=== PATIENT | female | born 1995 | race Caucasian/White ===

== ENCOUNTER 2016-10-03 15:11 | Emergency (ER) | payer OTHER, MEDICAID ==
[2016-10-03] MEDS ORDERED: NORMAL SALINE 1000 ML 1,000 ML IV PRN (16:05)
--- NOTE | 2016-10-03 16:11 | ER Document Report ---
ED Medical Screen (RME) - General Chief Complaint: Abdominal Pain Stated Complaint: ABDOMINAL PAIN,NAUSEA Time Seen by Provider: 10/03/16 16:04 Notes: Patient reports bilateral abdominal pain. She states she has had this for about 2 days. She has had some diarrhea and some vomiting. She states she believes she is 4 weeks per a home test. She has not been seen in a clinic for . She denies any vaginal discharge or bleeding. She states she does have a history of irritable bowel syndrome and PCOS. TRAVEL OUTSIDE OF THE [place] IN LAST 30 DAYS: No - Related Data Allergies/Adverse Reactions: No Known Allergies Allergy (Unverified 10/03/16 15:16) Past Medical History Pulmonary Medical History: Reports: Hx Asthma Renal/ Medical History: Denies: Hx Peritoneal Dialysis Physical Exam - Vital signs Vitals: Temp Pulse BP Pulse Ox 98.5 F 117 H 147/73 H 98 10/03/16 15:17 10/03/16 15:17 10/03/16 15:17 10/03/16 15:17 Course - Vital Signs Vital signs: Temp Pulse Resp BP Pulse Ox 98.5 F 117 H 147/73 H 98 10/03/16 15:17 10/03/16 15:17 10/03/16 15:17 10/03/16 15:17
[2016-10-03 16:35] LABS: ABSOLUTE BASOPHILS # (AUTO) 0.2 10^3/uL (0.0-0.2); ABSOLUTE EOSINOPHILS # (AUTO) 0.4 10^3/uL (0.0-0.6); ABSOLUTE LYMPHOCYTES (AUTO) 2.7 10^3/uL (0.5-4.7); ABSOLUTE MONOCYTES (AUTO) 0.7 10^3/uL (0.1-1.4); ABSOLUTE NEUT (AUTO) 7.3 10^3/uL (1.7-8.2); BASOPHILS % (AUTO) 1.4 % (0-2); EOSINOPHILS % (AUTO) 3.7 % (0-6); HEMOGLOBIN 14.9 g/dL (12.0-15.5); HGB HCT DIFFERENCE 0.7; MEAN CORPUSCULAR HEMOGLOBIN 30.3 pg (27.0-33.4); MEAN CORPUSCULAR HGB CONC 33.7 g/dL (32.0-36.0); MEAN CORPUSCULAR VOLUME 90 fl (80-97); MONOCYTES % (AUTO) 6.6 % (3-13); RED CELL DISTRIBUTION WIDTH 13.1 % (11.5-14.0); SEGMENTED NEUTROPHILS % (AUTO) 64.3 % (42-78); WHITE BLOOD COUNT 11.3 10^3/uL (4.0-10.5)
[2016-10-03 16:38] LABS: APPEARANCE,URINE SLIGHTLY-CLOUDY; BILIRUBIN,URINE NEGATIVE (NEGATIVE); GLUCOSE, URINE NEGATIVE (NEGATIVE); KETONES,URINE NEGATIVE (NEGATIVE); LEUKOCYTE ESTERASE,URINE NEGATIVE (NEGATIVE); NITRITE,URINE NEGATIVE (NEGATIVE); PROTEIN,URINE NEGATIVE (NEGATIVE); UROBILINOGEN,URINE NEGATIVE mg/dL (<2.0)
[2016-10-03 16:59] LABS: ALANINE AMINOTRANSFERASE 29 U/L (9-52); ALBUMIN 4.3 g/dL (3.5-5.0); ALKALINE PHOSPHATASE 67 U/L (38-126); ANION GAP 10 (5-19); ASPARTATE AMINO TRANSFERASE 19 U/L (14-36); BILIRUBIN,DIRECT 0.3 mg/dL (0.0-0.4); BILIRUBIN,TOTAL 0.6 mg/dL (0.2-1.3); BLOOD UREA NITROGEN 9 mg/dL (7-20); CALCIUM 9.8 mg/dL (8.4-10.2); CARBON DIOXIDE 21 mmol/L (22-30); CHLORIDE 106 mmol/L (98-107); CREATININE RESULT 0.67 mg/dL (0.52-1.25); GLUCOSE 86 mg/dL (75-110); LIPASE 157.5 U/L (23-300); POTASSIUM 4.2 mmol/L (3.6-5.0); SODIUM 137.4 mmol/L (137-145); TOTAL PROTEIN 7.6 g/dL (6.3-8.2)
[2016-10-03] MEDS ORDERED: ACETAMINOPHEN 325 MG TABLET PO ONE (18:08)
--- NOTE | 2016-10-03 18:09 | ER Document Report ---
ED GI/ - General Chief Complaint: Abdominal Pain Stated Complaint: ABDOMINAL PAIN,NAUSEA Time Seen by Provider: 10/03/16 16:04 Mode of Arrival: Ambulatory Information source: Patient TRAVEL OUTSIDE OF THE [place] IN LAST 30 DAYS: No - HPI Patient complains to provider of: Abdominal pain, Diarrhea, , Vomiting Onset: Other - 2 days Timing/Duration: Gradual Quality of pain: Achy Severity at maximum: Mild Severity in ED: Mild Location: Other - Diffuse Associated symptoms: Diarrhea, Nausea, Vomiting Exacerbated by: Denies Relieved by: Denies Similar symptoms previously: No Recently seen / treated by doctor: No Notes: 10/03/16 22:01 Patient is a 21-year-old female who reports being approximately 4 weeks presenting to the emergency room today complaining of 2 day history of nausea vomiting and diarrhea with diffuse crampy abdominal pain, she denies a fever, no history of similar symptoms previously, this is her first , she denies dysuria or hematuria, no vaginal discharge, no vaginal bleeding, she does have a history of IBS, PCOS and asthma, has not yet been seen by [facility] - Related Data Allergies/Adverse Reactions: No Known Allergies Allergy (Unverified 10/03/16 15:16) Past Medical History - General Information source: Patient - Social History Smoking Status: Never Smoker Family History: Reviewed & Not Pertinent Patient has suicidal ideation: No Patient has homicidal ideation: No Pulmonary Medical History: Reports: Hx Asthma Renal/ Medical History: Denies: Hx Peritoneal Dialysis Review of Systems - Review of Systems Constitutional: No symptoms reported EENT: No symptoms reported Cardiovascular: No symptoms reported Respiratory: No symptoms reported Gastrointestinal: See HPI Genitourinary: No symptoms reported Female Genitourinary: Musculoskeletal: No symptoms reported Skin: No symptoms reported Hematologic/Lymphatic: No symptoms reported Neurological/Psychological: No symptoms reported -: Yes All other systems reviewed and negative Physical Exam - Vital signs Vitals: Temp Pulse BP Pulse Ox 98.5 F 117 H 147/73 H 98 10/03/16 15:17 10/03/16 15:17 10/03/16 15:17 10/03/16 15:17 Interpretation: Normal - General General appearance: Appears well, Alert - HEENT Head: Normocephalic, Atraumatic Eyes: Normal Pupils: PERRL - Respiratory Respiratory status: No respiratory distress Chest status: Nontender Breath sounds: Normal Chest palpation: Normal - Cardiovascular Rhythm: Regular Heart sounds: Normal auscultation Murmur: No - Abdominal Inspection: Normal Distension: No distension Bowel sounds: Normal Tenderness: Tender - Epigastric Organomegaly: No organomegaly - Back Back: Normal, Nontender - Extremities General upper extremity: Normal inspection, Nontender, Normal color, Normal ROM , Normal temperature General lower extremity: Normal inspection, Nontender, Normal color, Normal ROM , Normal temperature, Normal weight bearing. No: Jyoti's sign - Neurological Neuro grossly intact: Yes Cognition: Normal Orientation: AAOx4 Elsa Coma Scale Eye Opening: Spontaneous [place] Coma Scale Verbal: Oriented Elsa Coma Scale Motor: Obeys Commands [place] Coma Scale Total: 15 Speech: Normal Motor strength normal: LUE, RUE, LLE, RLE Sensory: Normal - Psychological Associated symptoms: Normal affect, Normal mood - Skin Skin Temperature: Warm Skin Moisture: Dry Skin Color: Normal Course - Re-evaluation Re-evalutation: 10/03/16 19:42 Lab and imaging findings were discussed with patient at bedside which are consistent with early IUP, patient will be discharged with nausea meds and instructions for follow-up, advised to return if any additional concerns, patient acknowledges understanding and agreement with this plan - Vital Signs Vital signs: Temp Pulse Resp BP Pulse Ox 97.8 F 97 16 122/77 100 10/03/16 20:23 10/03/16 20:23 10/03/16 20:23 10/03/16 20:23 10/03/16 20:23 - Laboratory Result Diagrams: 10/03/16 16:20 10/03/16 16:20 Laboratory results interpreted by me: 10/03/16 10/03/16 16:20 16:20 WBC 11.3 H Carbon Dioxide 21 L Beta HCG, Quant 1946.80 H - Diagnostic Test Radiology reviewed: Image reviewed, Reports reviewed Discharge - Discharge Clinical Impression: Early stage of Abdominal pain Qualifiers: Abdominal location: generalized Qualified Code(s): R10.84 - Generalized abdominal pain Condition: Stable Disposition: HOME, SELF-CARE Instructions: Abdominal Pain ([facility]), Antinausea Medication ([facility]), Pelvic Pain in ([facility]), ([facility]) Additional Instructions: Follow up with your primary care provider in one to 2 days. Return to the emergency room immediately if symptoms worsen or any additional concerns. Prescriptions: Metoclopramide HCl [Reglan 10 mg Tablet] 1 - 2 tab PO ASDIR PRN #25 tablet PRN Reason:
--- NOTE | 2016-10-03 19:21 | RADIOLOGY REPORT (SQ) ---
EXAM DESCRIPTION: U/S OB TRANSVAG W/DOPPLER COMPLETED DATE/TIME: 10/03/2016 7:04 pm REASON FOR STUDY: , pelvic pain COMPARISON: None. TECHNIQUE: Transvaginal static and realtime grayscale images acquired of the pelvis. Additional tereso cted spectral and color Doppler images recorded. All images stored on PACs. bHC.80 LIMITATIONS: None. FINDINGS: UTERUS: No masses. No anomalies. GESTATIONAL SAC: Yes. YOLK SAC: No. POLE: No. RIGHT ADNEXA: Normal ovary with normal vascular flow. No adnexal free fluid. No adnexal masses. LEFT ADNEXA: Normal ovary with normal vascular flow. No adnexal free fluid. 3.5 cm echogenic focus left ovary presumably represents a physiologic corpus luteal cyst. FREE FLUID: None. OTHER: No other significant finding. IMPRESSION: POSSIBLE EARLY INTRAUTERINE . BHCG LEVEL APPROPRIATE FOR ENDOMETRIAL FINDINGS. CONSIDER F/U BHCG AND/OR ULTRASOUND FOR VERIFICATION AND TO EXCLUDE ECTOPIC . Trimester of : First - 0 to 13 weeks. TECHNICAL DOCUMENTATION: JOB ID: [id number] [employer]- All Rights Reserved
[2016-10-03 20:35] VITALS: BP 122/77
== END 2016-10-03 20:23 | disposition home or self-care (01) ==
LOC: ER 15:11
DX: O26.899 Other specified pregnancy related conditions, unspecified trimester (principal); R10.84 Generalized abdominal pain; R19.7 Diarrhea, unspecified; O34.80 Maternal care for other abnormalities of pelvic organs, unspecified trimester; E28.2 Polycystic ovarian syndrome; O21.9 Vomiting of pregnancy, unspecified; O99.519 Diseases of the respiratory system complicating pregnancy, unspecified trimester; J45.909 Unspecified asthma, uncomplicated; Z3A.00 Weeks of gestation of pregnancy not specified
CPT/HCPCS: 99284; 96360; 36415; 84702; 83690; 85025; 80053; 81001; 76817; 93976; J7030

== ENCOUNTER 2016-10-04 00:12 | Emergency (ER) | payer MEDICAID, OTHER ==
[2016-10-04 00:39] LABS: ABSOLUTE BASOPHILS # (AUTO) 0.1 10^3/uL (0.0-0.2); ABSOLUTE EOSINOPHILS # (AUTO) 0.4 10^3/uL (0.0-0.6); ABSOLUTE LYMPHOCYTES (AUTO) 3.5 10^3/uL (0.5-4.7); ABSOLUTE MONOCYTES (AUTO) 0.8 10^3/uL (0.1-1.4); ABSOLUTE NEUT (AUTO) 6.6 10^3/uL (1.7-8.2); BASOPHILS % (AUTO) 1.3 % (0-2); EOSINOPHILS % (AUTO) 3.9 % (0-6); HEMATOCRIT 40.7 % (36.0-47.0); HEMOGLOBIN 13.8 g/dL (12.0-15.5); HGB HCT DIFFERENCE 0.7; LYMPHOCYTES % (AUTO) 30.1 % (13-45); MEAN CORPUSCULAR HEMOGLOBIN 30.2 pg (27.0-33.4); MEAN CORPUSCULAR HGB CONC 33.9 g/dL (32.0-36.0); MEAN CORPUSCULAR VOLUME 89 fl (80-97); MONOCYTES % (AUTO) 7.1 % (3-13); RED BLOOD COUNT 4.56 10^6/uL (3.72-5.28); RED CELL DISTRIBUTION WIDTH 12.7 % (11.5-14.0); SEGMENTED NEUTROPHILS % (AUTO) 57.6 % (42-78); WHITE BLOOD COUNT 11.5 10^3/uL (4.0-10.5)
[2016-10-04 00:47] LABS: APPEARANCE,URINE CLOUDY; BILIRUBIN,URINE NEGATIVE (NEGATIVE); GLUCOSE, URINE NEGATIVE (NEGATIVE); KETONES,URINE NEGATIVE (NEGATIVE); LEUKOCYTE ESTERASE,URINE NEGATIVE (NEGATIVE); NITRITE,URINE NEGATIVE (NEGATIVE); PROTEIN,URINE 30 mg/dL (NEGATIVE); URINE SPECIFIC GRAVITY 1.028; UROBILINOGEN,URINE NEGATIVE mg/dL (<2.0)
[2016-10-04 01:02] LABS: URINE BARBITURATES SCREEN NEGATIVE; URINE METHADONE SCREEN NEGATIVE; URINE OPIATES LOW NEGATIVE; URINE PHENCYCLIDINE SCREEN NEGATIVE
[2016-10-04 01:03] LABS: ALANINE AMINOTRANSFERASE 33 U/L (9-52); ALKALINE PHOSPHATASE 60 U/L (38-126); ANION GAP 11 (5-19); ASPARTATE AMINO TRANSFERASE 19 U/L (14-36); BILIRUBIN,DIRECT 0.3 mg/dL (0.0-0.4); BILIRUBIN,TOTAL 0.7 mg/dL (0.2-1.3); BLOOD UREA NITROGEN 9 mg/dL (7-20); CALCIUM 9.4 mg/dL (8.4-10.2); CARBON DIOXIDE 19 mmol/L (22-30); CHLORIDE 107 mmol/L (98-107); GLUCOSE 91 mg/dL (75-110); MAGNESIUM 1.6 mg/dL (1.6-2.3); POTASSIUM 3.7 mmol/L (3.6-5.0); SODIUM 136.5 mmol/L (137-145); TOTAL PROTEIN 7.1 g/dL (6.3-8.2)
[2016-10-04 01:04] LABS: ALCOHOL < 10 mg/dL (NONE DETECTED)
--- NOTE | 2016-10-04 01:56 | ER Document Report ---
ED General - General Chief Complaint: Psych Problem Stated Complaint: PSYCH PROBLEM Time Seen by Provider: 10/04/16 01:47 Notes: Patient is a 21-year-old female who presents with complaint of multiple personality disorder. She is 5 weeks . She did have some abdominal cramping and was seen within the last 24 hours. Ultrasound that time was performed which showed probable early intrauterine . She still denies any vaginal bleeding or discharge. She presents with her because she apparently threatened to drive herself off a bridge in a car. She is threatening to take her life and the baby's life away from the . He did have text messages from the patient confirming this. Patient says she does not remember saying this because it was her other personality that said this. TRAVEL OUTSIDE OF THE [place] IN LAST 30 DAYS: No - Related Data Allergies/Adverse Reactions: No Known Allergies Allergy (Verified 10/04/16 00:16) Past Medical History - Social History Smoking Status: Unknown if Ever Smoked Frequency of alcohol use: None Drug Abuse: None Family History: Reviewed & Not Pertinent Patient has suicidal ideation: Yes Patient has homicidal ideation: No Pulmonary Medical History: Reports: Hx Asthma Renal/ Medical History: Denies: Hx Peritoneal Dialysis Psychiatric Medical History: Reports: Hx Bipolar Disorder, Hx Depression, Hx Schizophrenia Review of Systems - Review of Systems Notes: My Normal Review Basic REVIEW OF SYSTEMS: CONSTITUTIONAL : Denies fever, chills, or sweats. Denies recent illness.. RESPIRATORY: Denies cough, cold, or chest congestion. Denies shortness of breath, difficulty breathing, or wheezing. GASTROINTESTINAL: Mild lower abdominal pain. Denies nausea, vomiting, or diarrhea. Denies constipation. Last BM: GENITOURINARY: Denies difficulty urinating, painful urination, burning, frequency, or blood in urine. FEMALE GENITOURINARY: Denies vaginal bleeding, abnormal or irregular periods. LMP: Early MUSCULOSKELETAL: Denies neck or back pain or joint pain or swelling. SKIN: Denies rash or skin lesions. NEUROLOGICAL: Denies altered mental status or loss of consciousness. Denies headache. Denies weakness or paralysis or loss of use of either side. Denies problems with gait or speech. Denies sensory or motor loss. Psychiatric: Multiple personality disorder. Suicidal threats. ALL OTHER SYSTEMS REVIEWED AND NEGATIVE. Physical Exam - Vital signs Vitals: Temp Pulse Resp BP Pulse Ox 99.0 F 110 H 16 126/81 H 97 10/04/16 00:16 10/04/16 00:16 10/04/16 00:16 10/04/16 00:16 10/04/16 00:16 - Notes Notes: General Appearance: Well nourished, alert, cooperative, no acute distress, no obvious discomfort. Vitals: reviewed, See vital signs table. Head: no swelling or tenderness to the head Eyes: PERRL, EOMI, Conjuctiva clear Mouth: No decreasd moisture Throat: No tonsillar inflammation, No airway obstruction, No lymphadenopathy Neck: Supple, no neck tenderness, No thyromegaly Lungs: No wheezing, No rales, No rhonci, No accessory muscle use, good air exchange bilaterally. Heart: Normal rate, Regular rythm, No murmur, no rub Abdomen: Normal BS, soft, No rigidity, No reproducible abdominal tenderness to palpation, No guarding, no rebound, no abdominal masses, no organomegaly Extremities: strength 5/5 in all extremities, good pulses in all extremities, no swelling or tenderness in the extremities, no edema. Skin: warm, dry, appropriate color, no rash Neuro: speech clear, oriented x 3, normal affect, responds appropriately to questions. Course - Re-evaluation Re-evalutation: 10/04/16 06:28 Patient is here on involuntary commitment paperwork filled out by her family because of her thoughts of suicide and possible multiple personality disorder. Patient is and has had some mild cramping that she was seen for yesterday. Her hCG has trended up appropriately. I do not suspect ectopic based on the fact that she has very little to almost no pain to palpation of her abdomen. I feel she is medically stable for psychiatric evaluation and placement. Dictation of this chart was performed using voice recognition software; therefore, there may be some unintended grammatical errors. - Vital Signs Vital signs: Temp Pulse Resp BP Pulse Ox 99.0 F 110 H 16 126/81 H 97 10/04/16 00:16 10/04/16 00:16 10/04/16 00:16 10/04/16 00:16 10/04/16 00:16 - Laboratory Result Diagrams: 10/04/16 00:25 10/04/16 00:25 Laboratory results interpreted by me: 10/04/16 10/04/1610/04/17 00:25 00:25 00:25 WBC 11.5 H Sodium 136.5 L Carbon Dioxide 19 L Beta HCG, Quant Urine Protein 30 H 10/04/16 00:25 WBC Sodium Carbon Dioxide Beta HCG, Quant 2086.00 H Urine Protein - EKG Interpretation by Me Additional EKG results interpreted by me: 10/04/16 03:05 EKG is reviewed and interpreted by me. EKG shows normal sinus rhythm with rate of [address] segment elevation or depression. No ischemic T-wave inversions. ID interval, QRS duration, QTc intervals are within normal range. No old EKG available for comparison. Discharge - Discharge Clinical Impression: Suicidal ideation Condition: Stable Disposition: PSYCH HOSP/UNIT
[2016-10-04] MEDS ORDERED: ALBUTEROL SULFATE HFA (90 MCG/PUFF) 8 GM MDI (1 MDI/ER DISP) IH ONE (10:03)
--- NOTE | 2016-10-04 10:22 | EKG REPORT ---
SEVERITY:- NORMAL ECG - SINUS RHYTHM : Confirmed by: Peng Levi 04-Oct-2016 10:21:40
[2016-10-04 12:58] VITALS: BP 93/44
--- NOTE | 2016-10-04 14:38 | ER Document Report ---
Doctor's Note Notes: 10/04/16 14:37 Patient reevaluated at 2:25 PM. Patient is standing in the room talking to her mother and significant other. She is calm and cooperative. She is asking if she will be able to see family at the facility she is being transferred to. She is discussing this with the nurse. She is in no distress and is ambulating freely about the room.
== END 2016-10-04 14:30 ==
LOC: ER 00:12
DX: O26.891 Other specified pregnancy related conditions, first trimester (principal); R45.851 Suicidal ideations; R10.30 Lower abdominal pain, unspecified; O99.511 Diseases of the respiratory system complicating pregnancy, first trimester; J45.909 Unspecified asthma, uncomplicated; Z3A.01 Less than 8 weeks gestation of pregnancy
CPT/HCPCS: 93005; 99285; 36415; 80307 ×2; 84702; 83735; 85025; 80053; 81001; 93010; J3490

== ENCOUNTER 2016-12-23 17:39 | Emergency (ER) | payer OTHER ==
[2016-12-23] MEDS ORDERED: ALBUTEROL SULFATE 0.083% NEB 2.5 MG/3 ML AMPUL NEB ONE (18:10)
--- NOTE | 2016-12-23 18:10 | ER Document Report ---
ED Medical Screen (RME) - General Chief Complaint: Abdominal Pain Stated Complaint: COLD SYMPTOMS Time Seen by Provider: 12/23/16 18:04 Mode of Arrival: Ambulatory Information source: Patient Notes: 21-year-old female who is 16 weeks with 5 day duration of URI symptoms presents with complaints of chest wall pain and abdominal pain. Patient denies any vaginal bleeding discharge I have greeted and performed a rapid initial assessment of this patient. A comprehensive ED assessment and evaluation of the patient, analysis of test results and completion of the medical decision making process will be conducted by additional ED providers. PHYSICAL EXAMINATION: GENERAL: Well-appearing, well-nourished and in no acute distress. HEAD: Atraumatic, normocephalic. EYES: Pupils equal round extraocular movements intact, conjunctiva are normal. ENT: Nares patent NECK: Normal range of motion LUNGS: Inspiratory expiratory wheezing noted all throughout Musculoskeletal: Normal range of motion NEUROLOGICAL: Normal speech, normal gait. PSYCH: Normal mood, normal affect. SKIN: Warm, Dry, normal turgor, no rashes or lesions noted. TRAVEL OUTSIDE OF THE [place] IN LAST 30 DAYS: No - Related Data Allergies/Adverse Reactions: No Known Allergies Allergy (Verified 12/23/16 17:54) Home Medications: Current Home Medications Albuterol Sulfate [Proair HFA] 2 puff IH Q4 PRN 12/23/16 [History] Fluoxetine HCl [Prozac] 20 mg PO DAILY 12/23/16 [History] Gabapentin [Gabapentin] 1 cap PO QHS 12/23/16 [History] Risperidone [Risperdal] 0.5 mg PO QHS 12/23/16 [History] Past Medical History Pulmonary Medical History: Reports: Hx Asthma Renal/ Medical History: Denies: Hx Peritoneal Dialysis Psychiatric Medical History: Reports: Hx Bipolar Disorder, Hx Depression, Hx Schizophrenia Past Surgical History: Reports: Hx Oral Surgery - wisdom teeth - Immunizations Hx Diphtheria, Pertussis, Tetanus Vaccination: No History of Influenza Vaccine for 11/2016 - 04/2017 Season: No Physical Exam - Vital signs Vitals: Temp Pulse Resp BP Pulse Ox 98.5 F 100 16 110/68 98 12/23/16 17:54 12/23/16 17:54 12/23/16 17:54 12/23/16 17:54 12/23/16 17:54 Course - Vital Signs Vital signs: Temp Pulse Resp BP Pulse Ox 98.5 F 100 16 110/68 98 12/23/16 17:54 12/23/16 17:54 12/23/16 17:54 12/23/16 17:54 12/23/16 17:54
[2016-12-23] MEDS ORDERED: NORMAL SALINE 1000 ML 1,000 ML IV PRN (18:32)
--- NOTE | 2016-12-23 18:34 | ER Document Report ---
ED General - General Chief Complaint: Abdominal Pain Stated Complaint: COLD SYMPTOMS Time Seen by Provider: 12/23/16 18:04 Mode of Arrival: Ambulatory Information source: Patient TRAVEL OUTSIDE OF THE [place] IN LAST 30 DAYS: No - HPI Patient complains to provider of: Cough, cold congestion, pelvic cramping Onset: Other - 5 days Onset/Duration: Persistent, Worse Quality of pain: Achy, Cramping Severity: Mild Pain Level: 2 Associated symptoms: Body/muscle aches, Chills, Nonproductive cough, Diarrhea, Nausea, Shortness of breath Exacerbated by: Denies Relieved by: Denies Similar symptoms previously: No Recently seen / treated by doctor: Yes Notes: Patient is a 21-year-old female who is currently approximately 16 weeks , presenting to the emergency room today complaining of shortness of breath, cough cold and congestion, 5 days, [facility] previously put her on a Z-Cristian which she completed, today she developed some pelvic cramping without any discharge or bleeding, yesterday she had nausea and diarrhea, denies any fever, does report positive sick contacts, has been seen at [facility] and had a ultrasound at 10 weeks showing positive IUP, she reports feeling fluttering heart movements - Related Data Allergies/Adverse Reactions: No Known Allergies Allergy (Verified 12/23/16 17:54) Home Medications: Current Home Medications Albuterol Sulfate [Proair HFA] 2 puff IH Q4 PRN 12/23/16 [History] Fluoxetine HCl [Prozac] 20 mg PO DAILY 12/23/16 [History] Gabapentin [Gabapentin] 1 cap PO QHS 12/23/16 [History] Risperidone [Risperdal] 0.5 mg PO QHS 12/23/16 [History] Past Medical History - General Information source: Patient - Social History Smoking Status: Former Smoker Family History: Reviewed & Not Pertinent Patient has suicidal ideation: No Patient has homicidal ideation: No Pulmonary Medical History: Reports: Hx Asthma Renal/ Medical History: Denies: Hx Peritoneal Dialysis Psychiatric Medical History: Reports: Hx Bipolar Disorder, Hx Depression, Hx Schizophrenia Past Surgical History: Reports: Hx Oral Surgery - wisdom teeth - Immunizations Hx Diphtheria, Pertussis, Tetanus Vaccination: No Review of Systems - Review of Systems Constitutional: See HPI EENT: See HPI Cardiovascular: See HPI Respiratory: See HPI Gastrointestinal: See HPI Genitourinary: No symptoms reported Female Genitourinary: Musculoskeletal: No symptoms reported Skin: No symptoms reported Hematologic/Lymphatic: No symptoms reported Neurological/Psychological: No symptoms reported -: Yes All other systems reviewed and negative Physical Exam - Vital signs Vitals: Temp Pulse Resp BP Pulse Ox 98.5 F 100 16 110/68 98 12/23/16 17:54 12/23/16 17:54 12/23/16 17:54 12/23/16 17:54 12/23/16 17:54 Interpretation: Normal - General General appearance: Appears well, Alert - HEENT Head: Normocephalic, Atraumatic Eyes: Normal Pupils: PERRL - Respiratory Respiratory status: No respiratory distress Chest status: Tender - Tender to palpate over midsternum Breath sounds: Normal Chest palpation: Normal - Cardiovascular Rhythm: Regular Heart sounds: Normal auscultation Murmur: No - Abdominal Inspection: Normal Distension: No distension Bowel sounds: Normal Tenderness: Tender - Tender to palpate in the suprapubic region Organomegaly: No organomegaly - Back Back: Normal, Nontender - Extremities General upper extremity: Normal inspection, Nontender, Normal color, Normal ROM , Normal temperature General lower extremity: Normal inspection, Nontender, Normal color, Normal ROM , Normal temperature, Normal weight bearing. No: Jyoti's sign - Neurological Neuro grossly intact: Yes Cognition: Normal Orientation: AAOx4 Elsa Coma Scale Eye Opening: Spontaneous [place] Coma Scale Verbal: Oriented Elsa Coma Scale Motor: Obeys Commands Elsa Coma Scale Total: 15 Speech: Normal Motor strength normal: LUE, RUE, LLE, RLE Sensory: Normal - Psychological Associated symptoms: Normal affect, Normal mood - Skin Skin Temperature: Warm Skin Moisture: Dry Skin Color: Normal Course - Re-evaluation Re-evalutation: 12/23/16 21:00 Lab and imaging findings were discussed with patient at bedside which are fairly unremarkable, mild dehydration noted, she is receiving IV fluids, symptoms otherwise consistent with viral upper respiratory illness, she was advised to continue supportive care, follow-up with [facility] or return if symptoms worsen, patient acknowledges understanding and agreement with this plan - Vital Signs Vital signs: Temp Pulse Resp BP Pulse Ox 98.3 F 95 16 112/70 99 12/23/16 20:58 12/23/16 20:58 12/23/16 20:58 12/23/16 20:58 12/23/16 20:58 - Laboratory Result Diagrams: 12/23/16 18:40 12/23/16 18:40 Laboratory results interpreted by me: 12/23/16 12/23/16 18:40 18:40 WBC 15.6 H Abs Neuts (Manual) 11.5 H Sodium 134.1 L Carbon Dioxide 20 L ALT 76 H Discharge - Discharge Clinical Impression: Viral upper respiratory illness Qualifiers: Weeks of gestation: 16 weeks Qualified Code(s): Z3A.16 - 16 weeks gestation of Condition: Stable Disposition: HOME, SELF-CARE Instructions: ([facility]), Upper Respiratory Illness ([facility]), Viral Syndrome ([facility]) Additional Instructions: Follow up with your primary care provider in one to 2 days. Return to the emergency room immediately if symptoms worsen or any additional concerns. Prescriptions: Albuterol Sulfate [Proair HFA Inhalation Aerosol 8.5 gm MDI] 1 puff IH Q4 PRN # 1 mdi PRN Reason: Referrals: BUZZ FLOYD MD [Primary Care Provider] - Follow up as needed
[2016-12-23 18:59] LABS: HEMOGLOBIN 12.8 g/dL (12.0-15.5); HGB HCT DIFFERENCE 1.4; MEAN CORPUSCULAR HEMOGLOBIN 30.7 pg (27.0-33.4); MEAN CORPUSCULAR HGB CONC 34.6 g/dL (32.0-36.0); MEAN CORPUSCULAR VOLUME 89 fl (80-97); RED BLOOD COUNT 4.17 10^6/uL (3.72-5.28); RED CELL DISTRIBUTION WIDTH 13.4 % (11.5-14.0); WHITE BLOOD COUNT 15.6 10^3/uL (4.0-10.5)
[2016-12-23 19:16] LABS: ALANINE AMINOTRANSFERASE 76 U/L (9-52); ALBUMIN 3.6 g/dL (3.5-5.0); ALKALINE PHOSPHATASE 61 U/L (38-126); ANION GAP 8 (5-19); ASPARTATE AMINO TRANSFERASE 27 U/L (14-36); BILIRUBIN,DIRECT 0.2 mg/dL (0.0-0.4); BILIRUBIN,TOTAL 0.3 mg/dL (0.2-1.3); BLOOD UREA NITROGEN 7 mg/dL (7-20); CALCIUM 9.4 mg/dL (8.4-10.2); CARBON DIOXIDE 20 mmol/L (22-30); CHLORIDE 106 mmol/L (98-107); CREATININE RESULT 0.54 mg/dL (0.52-1.25); GLUCOSE 95 mg/dL (75-110); LIPASE 186.1 U/L (23-300); POTASSIUM 4.3 mmol/L (3.6-5.0); SODIUM 134.1 mmol/L (137-145); TOTAL PROTEIN 6.7 g/dL (6.3-8.2)
[2016-12-23 19:22] LABS: BASOPHILS % (MANUAL) 0 % (0-2); EOSINOPHILS % (MANUAL) 2 % (0-6); LYMPHOCYTES % (MANUAL) 18 % (13-45); TOTAL CELLS COUNTED 100
[2016-12-23 19:24] LABS: POLYCHROMASIA SLIGHT
--- NOTE | 2016-12-23 19:31 | RADIOLOGY REPORT (SQ) ---
EXAM DESCRIPTION: CHEST PA/LAT COMPLETED DATE/TIME: 12/23/2016 7:09 pm REASON FOR STUDY: cough COMPARISON: 01/07/2010 EXAM PARAMETERS: NUMBER OF VIEWS: two views TECHNIQUE: Digital Frontal and Lateral radiographic views of the chest acquired. RADIATION DOSE: NA LIMITATIONS: none FINDINGS: LUNGS AND PLEURA: No opacities, masses or pneumothorax. No pleural effusion. MEDIASTINUM AND HILAR STRUCTURES: No masses or contour abnormalities. HEART AND VASCULAR STRUCTURES: Heart normal size. No evidence for failure. BONES: No acute findings. HARDWARE: None in the chest. OTHER: No other significant finding. IMPRESSION: NO SIGNIFICANT RADIOGRAPHIC FINDING IN THE CHEST. TECHNICAL DOCUMENTATION: JOB ID: [id number] [employer]- All Rights Reserved
[2016-12-23 19:52] LABS: AMORPHOUS SEDIMENT,URINE TRACE /HPF; APPEARANCE,URINE CLOUDY; BILIRUBIN,URINE NEGATIVE (NEGATIVE); GLUCOSE, URINE NEGATIVE (NEGATIVE); KETONES,URINE NEGATIVE (NEGATIVE); LEUKOCYTE ESTERASE,URINE NEGATIVE (NEGATIVE); NITRITE,URINE NEGATIVE (NEGATIVE); PROTEIN,URINE NEGATIVE (NEGATIVE); URINE SPECIFIC GRAVITY 1.009; UROBILINOGEN,URINE NEGATIVE mg/dL (<2.0)
[2016-12-23 20:59] VITALS: BP 112/70
== END 2016-12-23 20:59 | disposition home or self-care (01) ==
LOC: ER 17:39
DX: O99.512 Diseases of the respiratory system complicating pregnancy, second trimester (principal); J06.9 Acute upper respiratory infection, unspecified; B97.89 Other viral agents as the cause of diseases classified elsewhere; J45.909 Unspecified asthma, uncomplicated; O99.282 Endocrine, nutritional and metabolic diseases complicating pregnancy, second trimester; E86.0 Dehydration; O26.892 Other specified pregnancy related conditions, second trimester; R05 Cough; R06.02 Shortness of breath; R10.2 Pelvic and perineal pain; R68.83 Chills (without fever); R19.7 Diarrhea, unspecified; R11.0 Nausea; Z3A.16 16 weeks gestation of pregnancy; Z87.891 Personal history of nicotine dependence
CPT/HCPCS: 94640; 99284; 96360; 36415; 87086; 83690; 85025; 80053; 81001; 87804; 71020; J7030

== ENCOUNTER 2018-04-19 15:32 | Emergency (ER) | payer OTHER ==
--- NOTE | 2018-04-19 16:56 | RADIOLOGY REPORT (SQ) ---
EXAM DESCRIPTION: SHOULDER LEFT 2 OR MORE VIEWS COMPLETED DATE/TIME: 04/19/2018 4:45 pm REASON FOR STUDY: tenderness COMPARISON: None. NUMBER OF VIEWS: Three views. TECHNIQUE: Internal rotation, external rotation, and Y view images acquired of the left shoulder. LIMITATIONS: None. FINDINGS: MINERALIZATION: Normal. BONES: No acute fracture or dislocation. No worrisome bone lesions. JOINTS: No dislocation. VISUALIZED LUNGS AND RIBS: No pneumothorax. No rib fracture. SOFT TISSUES: No radiopaque foreign body. OTHER: No other significant finding. IMPRESSION: NO RADIOGRAPHIC EVIDENCE OF ACUTE INJURY. TECHNICAL DOCUMENTATION: JOB ID: [id number] [employer]- All Rights Reserved Reading location - IP/workstation name: [email or web address]
[2018-04-19] MEDS ORDERED: HYDROCODONE/ACETAMINOPHEN 5-325 MG TABLET PO ONE (17:06)
[2018-04-19] MEDS ORDERED: IBUPROFEN 800 MG TABLET PO ONE (17:06)
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
[2018-04-19] MEDS ORDERED: HYDROCODONE/ACETAMINOPHEN 5-325 MG (6 TAB/ER DISP) PO PRN (18:49)
[2018-04-19 19:22] VITALS: BP 129/78
== END 2018-04-19 19:17 | disposition home or self-care (01) ==
LOC: ER 15:32
DX: S40.012A Contusion of left shoulder, initial encounter (principal); S16.1XXA Strain of muscle, fascia and tendon at neck level, initial encounter; M54.2 Cervicalgia; R07.9 Chest pain, unspecified; M25.512 Pain in left shoulder; M25.511 Pain in right shoulder; M79.602 Pain in left arm; V87.7XXA Person injured in collision between other specified motor vehicles (traffic), initial encounter; F17.200 Nicotine dependence, unspecified, uncomplicated; J45.909 Unspecified asthma, uncomplicated
CPT/HCPCS: 71045; 72050; 99283

== ENCOUNTER 2018-07-03 00:30 | Observation (INO) | payer SELFPAY ==
[2018-07-03] MEDS ORDERED: NORMAL SALINE 1000 ML 1,000 ML IV ONE ×2 (01:09→11:56)
--- NOTE | 2018-07-03 01:57 | ER Document Report ---
ED General - General Chief Complaint: Possible Overdose Stated Complaint: OTHER Time Seen by Provider: 07/03/18 00:56 Notes: Patient is a 23-year-old female with history of methamphetamine abuse that presents to the emergency department for chief complaint of possible overdose. Patient was found by friends, after vomiting on herself, and was difficult to arouse, she was brought to her parents house, and her mother called EMS to bring her to the emergency department. There was concern that the patient intentionally overdosed on pills, there is no witnesses, and no one knows what she may have taken. Mother states that she does use methamphetamines, and is on medication for bipolar disorder including Lamictal, Adderall, and Xanax, but states she has been off her medications for approximately 3 weeks. At this time, the patient will open her eyes for me, she states she just wants to sleep, and is somewhat irritated, she denies having any pain at this time, and is adamant that she did not take any medication to try to kill herself, she states that she swears on her son's life. She is able to answer questions regarding person place and time and answers them appropriately. Patient was found to have a razor blade in her bra, as well as a straw containing white powdery contents. Past Medical History: Methamphetamine abuse, bipolar disorder, ADHD Past Surgical History: Denies surgical history Social History: Admits to smoking cigarettes, denies alcohol use, admits to methamphetamine abuse. Family History: Reviewed and noncontributory for presenting illness Allergies: Reviewed, see documented allergy list. REVIEW OF SYSTEMS: Other than noted above, the 12 point review of systems was reviewed with the patient and were negative, all pertinent findings are included in the HPI. PHYSICAL EXAMINATION: Vital signs reviewed, nursing noted reviewed. GENERAL: Somnolent, but arousable, no acute distress HEAD: Atraumatic, normocephalic. EYES: Eyes appear normal, extraocular movements intact, sclera anicteric, conjunctiva are normal. ENT: nares patent, oropharynx clear without exudates. Moist mucous membranes. NECK: Normal range of motion, supple without lymphadenopathy LUNGS: Breath sounds clear to auscultation bilaterally and equal. No wheezes rales or rhonchi. HEART: Heart rate tachycardic, regular rhythm. ABDOMEN: Soft, nontender, normoactive bowel sounds. No rebound, guarding, or rigidity. No masses appreciated. EXTREMITIES: Nontender, good range of motion, no pitting or edema. NEUROLOGICAL: GCS: 14, will open eyes to verbal stimuli, No focal neurological deficits. Moves all extremities spontaneously Motor and sensory grossly intact on exam. PSYCH: Somnolent, argumentative, but answering questions appropriately, she is tearful at times as well. SKIN: Warm, Dry, normal turgor, minor skin excoriation is noted to both feet, no signs of infection. TRAVEL OUTSIDE OF THE [place] IN LAST 30 DAYS: No - Related Data Allergies/Adverse Reactions: No Known Allergies Allergy (Verified 12/23/16 17:54) Past Medical History - Social History Smoking Status: Current Every Day Smoker Family History: Reviewed & Not Pertinent Pulmonary Medical History: Reports: Hx Asthma Renal/ Medical History: Denies: Hx Peritoneal Dialysis Psychiatric Medical History: Reports: Hx Bipolar Disorder, Hx Depression, Hx Schizophrenia Past Surgical History: Reports: Hx Oral Surgery - wisdom teeth - Immunizations Hx Diphtheria, Pertussis, Tetanus Vaccination: No Physical Exam - Vital signs Vitals: Temp Pulse Resp BP Pulse Ox 97.5 F 97 16 125/78 95 07/03/18 00:37 07/03/18 00:37 07/03/18 00:37 07/03/18 00:37 07/03/18 00:37 Course - Re-evaluation Re-evalutation: Patient seen and examined, vital signs reviewed. Medical screening testing was ordered including bloodwork, EKG, and toxicology. Results of testing were reviewed. Testing demonstrated unremarkable blood work, urine testing pending at this time. Patient has been stable from a hemodynamic standpoint. Patient did become rather argumentative, and violent, was yelling out slurs towards staff, and was rather inappropriate, and agitated, became a threat to herself and others, at this point patient was restrained with medications, with IM Haldol 5 mg, Ativan 2 mg, and Benadryl 50 mg. All administered intramuscularly. Patient became more sedated, was hemodynamically stable at this point, was continued to be monitored in the emergency department. I believe the patient will need psychiatric evaluation, given that she has been off of her medications for approximately 3 weeks, is a substance abuser, and is becoming a threat to herself and others. IVC petition was filled out. At this point I feel that the patient is medically cleared and can be further evaluated from a psychiatric standpoint for final disposition from the emergency department. Patient updated on plan of care. Laboratory 07/03/18 07/03/18 07/03/18 03:29 03:29 03:29 WBC 7.3 RBC 4.85 Hgb 14.6 Hct 43.0 MCV 89 MCH 30.1 MCHC 33.9 RDW 13.2 Plt Count 258 Seg Neutrophils % 70.5 Lymphocytes % 18.9 Monocytes % 6.7 Eosinophils % 2.7 Basophils % 1.2 Absolute Neutrophils 5.1 Absolute Lymphocytes 1.4 Absolute Monocytes 0.5 Absolute Eosinophils 0.2 Absolute Basophils 0.1 Sodium 142.3 Potassium 4.8 Chloride 106 Carbon Dioxide 27 Anion Gap 9 BUN 8 Creatinine 0.84 Est GFR ( Amer) > 60 Est GFR (Non-Af Amer) > 60 Glucose 111 H Calcium 9.6 Total Bilirubin 0.8 Direct Bilirubin 0.4 Neonat Total Bilirubin Not Reportable Neonat Direct Bilirubin Not Reportable Neonat Indirect Bili Not Reportable AST 32 ALT 30 Alkaline Phosphatase 64 Total Protein 7.4 Albumin 3.9 Serum HCG, Qual NEGATIVE Salicylates < 1.0 L Acetaminophen < 10 L Serum Alcohol < 10 - Vital Signs Vital signs: Temp Pulse Resp BP Pulse Ox 97.5 F 97 16 125/78 95 07/03/18 00:37 07/03/18 00:37 07/03/18 00:37 07/03/18 00:37 07/03/18 00:37 - Laboratory Result Diagrams: 07/03/18 03:29 07/03/18 03:29 Laboratory results interpreted by me: 07/03/18 03:29 Glucose 111 H Salicylates < 1.0 L Acetaminophen < 10 L - EKG Interpretation by Me Additional EKG results interpreted by me: EKG demonstrates sinus rhythm with a ventricular rate of 75 bpm, normal axis, normal intervals, no evidence of acute ischemia in this EKG, compared with prior EKG from 10/04/2016 without significant change. Discharge - Discharge Clinical Impression: Combative behavior, Substance abuse Bipolar disorder Qualifiers: Active/Remission status: remission status unspecified Qualified Code(s): F31.9 - Bipolar disorder, unspecified Condition: Stable Disposition: PSYCH HOSP/UNIT
[2018-07-03] MEDS ORDERED: HALOPERIDOL LACTATE INJ 5 MG/1 ML VIAL IM ONE (02:46)
[2018-07-03] MEDS ORDERED: DIPHENHYDRAMINE HCL 50 MG/ML VIAL IM ONE (02:46)
[2018-07-03] MEDS ORDERED: LORAZEPAM INJ 2 MG/1 ML VIAL IM ONE (02:46)
[2018-07-03] MEDS ORDERED: HALOPERIDOL LACTATE INJ 5 MG/1 ML VIAL ONE (02:46)
[2018-07-03] MEDS ORDERED: LORAZEPAM INJ 2 MG/1 ML VIAL ONE (02:47)
[2018-07-03 03:46] LABS: ABSOLUTE BASOPHILS # (AUTO) 0.1 10^3/uL (0.0-0.2); ABSOLUTE EOSINOPHILS # (AUTO) 0.2 10^3/uL (0.0-0.6); ABSOLUTE LYMPHOCYTES (AUTO) 1.4 10^3/uL (0.5-4.7); ABSOLUTE MONOCYTES (AUTO) 0.5 10^3/uL (0.1-1.4); ABSOLUTE NEUT (AUTO) 5.1 10^3/uL (1.7-8.2); BASOPHILS % (AUTO) 1.2 % (0-2); EOSINOPHILS % (AUTO) 2.7 % (0-6); HEMOGLOBIN 14.6 g/dL (12.0-15.5); LYMPHOCYTES % (AUTO) 18.9 % (13-45); MEAN CORPUSCULAR HEMOGLOBIN 30.1 pg (27.0-33.4); MEAN CORPUSCULAR HGB CONC 33.9 g/dL (32.0-36.0); MEAN CORPUSCULAR VOLUME 89 fl (80-97); MONOCYTES % (AUTO) 6.7 % (3-13); PLATELET COUNT 258 10^3/uL (150-450); RED BLOOD COUNT 4.85 10^6/uL (3.72-5.28); RED CELL DISTRIBUTION WIDTH 13.2 % (11.5-14.0); SEGMENTED NEUTROPHILS % (AUTO) 70.5 % (42-78); TOTAL CELLS COUNTED % (AUTO) 100 %; WHITE BLOOD COUNT 7.3 10^3/uL (4.0-10.5)
[2018-07-03 04:05] LABS: ALANINE AMINOTRANSFERASE 30 U/L (9-52); ALBUMIN 3.9 g/dL (3.5-5.0); ALKALINE PHOSPHATASE 64 U/L (38-126); ANION GAP 9 (5-19); ASPARTATE AMINO TRANSFERASE 32 U/L (14-36); BILIRUBIN,DIRECT 0.4 mg/dL (0.0-0.4); BILIRUBIN,TOTAL 0.8 mg/dL (0.2-1.3); BLOOD UREA NITROGEN 8 mg/dL (7-20); CALCIUM 9.6 mg/dL (8.4-10.2); CARBON DIOXIDE 27 mmol/L (22-30); CHLORIDE 106 mmol/L (98-107); GLUCOSE 111 mg/dL (75-110); POTASSIUM 4.8 mmol/L (3.6-5.0); SODIUM 142.3 mmol/L (137-145); TOTAL PROTEIN 7.4 g/dL (6.3-8.2)
[2018-07-03 04:07] LABS: ACETAMINOPHEN < 10 ug/mL (10-30); ALCOHOL < 10 mg/dL (NONE DETECTED); SALICYLATE < 1.0 mg/dL (2.0-20.0)
[2018-07-03] MEDS ORDERED: ALBUTEROL SULFATE 0.083% NEB 2.5 MG/3 ML AMPUL NEB ONE (09:44)
--- NOTE | 2018-07-03 09:48 | ER Document Report ---
Doctor's Note Notes: 07/03/18 09:46 23-year-old female apparently using methamphetamines and possible overdose? Possible SI?. Still quite stuporous. Now coughing. Has some wheezes on physical exam. Review of her labs have been performed. No urinalysis has been obtained yet. Eating treatment and a chest x-ray at this time to make sure she does not have an infiltrate from aspiration or some other pathology. Will repeat EKG at this time to make sure the QTC is not prolonged. Recommending patient be placed on the monitor 07/03/18 09:47 07/03/18 09:53 Laboratory 07/03/18 07/03/18 07/03/18 03:29 03:29 03:29 WBC 7.3 RBC 4.85 Hgb 14.6 Hct 43.0 MCV 89 MCH 30.1 MCHC 33.9 RDW 13.2 Plt Count 258 Seg Neutrophils % 70.5 Lymphocytes % 18.9 Monocytes % 6.7 Eosinophils % 2.7 Basophils % 1.2 Absolute Neutrophils 5.1 Absolute Lymphocytes 1.4 Absolute Monocytes 0.5 Absolute Eosinophils 0.2 Absolute Basophils 0.1 Sodium 142.3 Potassium 4.8 Chloride 106 Carbon Dioxide 27 Anion Gap 9 BUN 8 Creatinine 0.84 Est GFR ( Amer) > 60 Est GFR (Non-Af Amer) > 60 Glucose 111 H Calcium 9.6 Total Bilirubin 0.8 Direct Bilirubin 0.4 Neonat Total Bilirubin Not Reportable Neonat Direct Bilirubin Not Reportable Neonat Indirect Bili Not Reportable AST 32 ALT 30 Alkaline Phosphatase 64 Total Protein 7.4 Albumin 3.9 Serum HCG, Qual NEGATIVE Salicylates < 1.0 L Acetaminophen < 10 L Serum Alcohol < 10 07/03/18 14:54 Patient still persistently altered. Uncomfortable sitting on her any longer in the ER. Head CT ordered. Consulted medicine. Will admit at this time for observation Discharge - Discharge Clinical Impression: Combative behavior, Substance abuse Bipolar disorder Qualifiers: Active/Remission status: remission status unspecified Qualified Code(s): F31.9 - Bipolar disorder, unspecified Condition: Stable Disposition: ADMITTED INPATIENT Admitting Provider: Ashish (Hospitalist) Unit Admitted: [facility]
--- NOTE | 2018-07-03 10:14 | RADIOLOGY REPORT (SQ) ---
EXAM DESCRIPTION: CHEST SINGLE VIEW COMPLETED DATE/TIME: 07/03/2018 9:54 am REASON FOR STUDY: cough COMPARISON: None. NUMBER OF VIEWS: One view. TECHNIQUE: Single frontal radiographic view of the chest acquired. LIMITATIONS: None. FINDINGS: LUNGS AND PLEURA: No opacities, masses or pneumothorax. No pleural effusion. MEDIASTINUM AND HILAR STRUCTURES: No masses. Contour normal. HEART AND VASCULAR STRUCTURES: Heart normal in size. Normal vasculature. BONES: No acute findings. HARDWARE: None in the chest. OTHER: No other significant finding. IMPRESSION: NO SIGNIFICANT RADIOGRAPHIC FINDING IN THE CHEST. TECHNICAL DOCUMENTATION: JOB ID: [id number] [employer]- All Rights Reserved Reading location - IP/workstation name: [email or web address]
--- NOTE | 2018-07-03 10:20 | EKG REPORT ---
SEVERITY:- NORMAL ECG - SINUS RHYTHM : Confirmed by: Peng Levi 03-Jul-2018 10:19:07
--- NOTE | 2018-07-03 10:30 | EKG REPORT ---
SEVERITY:- NORMAL ECG - SINUS RHYTHM : Confirmed by: Peng Levi 03-Jul-2018 10:29:41
[2018-07-03 10:58] LABS: ADD MANUAL MICROSCOPIC YES; APPEARANCE,URINE CLOUDY; BILIRUBIN,URINE MODERATE (NEGATIVE); COLOR,URINE YELLOW; GLUCOSE, URINE NEGATIVE (NEGATIVE); KETONES,URINE 25 mg/dL (NEGATIVE); LEUKOCYTE ESTERASE,URINE TRACE (NEGATIVE); NITRITE,URINE NEGATIVE (NEGATIVE); PROTEIN,URINE 30 mg/dL (NEGATIVE); URINE SPECIFIC GRAVITY 1.031
[2018-07-03 11:09] LABS: BACTERIA,URINE 3+ /HPF
[2018-07-03 11:11] LABS: OTHER CASTS, URINE 0-1 /LPF
--- NOTE | 2018-07-03 15:06 | RADIOLOGY REPORT (SQ) ---
EXAM DESCRIPTION: CT HEAD WITHOUT COMPLETED DATE/TIME: 07/03/2018 2:56 pm REASON FOR STUDY: ams COMPARISON: None. TECHNIQUE: Axial images acquired through the brain without intravenous contrast. Images reviewed wi th bone, brain and subdural windows. Additional sagittal and coronal reconstructions were generated. Images stored on PACS. All CT scanners at this facility use dose modulation, iterative reconstruction, and/or weight based d osing when appropriate to reduce radiation dose to as low as reasonably achievable (ALARA). [facility]: Dose Right [facility]: CareDose [facility]: Dose Right [facility]: Teradose 4D [facility]: One Parts Bill RADIATION DOSE: CT Rad equipment meets quality standard of care and radiation dose reduction techniq ues were employed. CTDIvol: 53.2 mGy. DLP: 937 mGy-cm. mGy. LIMITATIONS: None. FINDINGS: VENTRICLES: Normal size and contour. CEREBRUM: No masses. No hemorrhage. No midline shift. No evidence for acute infarction. Normal gra y/white matter differentiation. No areas of low density in the white matter. CEREBELLUM: No masses. No hemorrhage. No alteration of density. No evidence for acute infarction. EXTRAAXIAL SPACES: No fluid collections. No masses. ORBITS AND GLOBE: No intra- or extraconal masses. Normal contour of globe without masses. CALVARIUM: No fracture. PARANASAL SINUSES: There is left ethmoid and bilateral maxillary sinusitis. SOFT TISSUES: No mass or hematoma. OTHER: No other significant finding. IMPRESSION: NORMAL BRAIN CT WITHOUT CONTRAST. EVIDENCE OF ACUTE STROKE: NO. COMMENT: Quality ID # [id number]: Final reports with documentation of one or more dose reduction techniques (e.g., Automated exposure control, adjustment of the mA and/or kV according to patient size, use of iterative reconstruction technique) TECHNICAL DOCUMENTATION: JOB ID: [id number] [employer]- All Rights Reserved Reading location - IP/workstation name: [email or web address]
[2018-07-03 15:18] LABS: URINE BARBITURATES SCREEN NEGATIVE; URINE BENZODIAZEPINES SCREEN NEGATIVE; URINE COCAINE SCREEN NEGATIVE; URINE MARIJUANA (THC) SCREEN UNCONFIRMED POSITIVE; URINE METHADONE SCREEN NEGATIVE; URINE PHENCYCLIDINE SCREEN NEGATIVE
[2018-07-03] MEDS ORDERED: ALBUTEROL SULFATE 0.083% NEB 2.5 MG/3 ML AMPUL NEB PRN (16:05)
[2018-07-03] MEDS ORDERED: MAG HYDROX/AL HYDROX/SIMETH SUSP 30 ML UDCUP PO PRN (16:13)
[2018-07-03] MEDS ORDERED: NORMAL SALINE 1000 ML 1,000 ML IV PRN (16:13)
[2018-07-03] MEDS ORDERED: ACETAMINOPHEN 325 MG TABLET PO PRN (16:13)
[2018-07-03] MEDS ORDERED: PROMETHAZINE HCL INJ 25 MG/1 ML VIAL IV PRN (16:13)
[2018-07-03] MEDS ORDERED: ONDANSETRON HCL INJ/PF 4 MG/2 ML SDV IV PRN (16:13)
--- NOTE | 2018-07-03 16:34 | PDOC H&P ---
History of Present Illness Admission Date/PCP: 07/03/18 14:59 Patient complains of: substance abuse History of Present Illness: MYLENE MONSALVE is a 23 year old female with a known past medical history of substance abuse and suicidal ideation who presented to the emergency department today via EMS for complaint of decreased mental status. The patient was repor tedly found sleeping in her car and when she was difficult to arouse, EMS was notified. Patient confirms methamphetamine use as recently as 4 days ago. Per ED provider and nursing notes, white powder was noted to the patient's nare and razor blade and straw were found in the patient's clothing. Evaluation by the emergency department provider was essentially unremarkable with a normal chest x-ray, head CT, and unremarkable laboratory evaluation including negative serum hCG, and drug screen notable only for marijuana (amphetamines could not be reported due to interfering substance). Psychiatric services were consulted and she has been placed under IVC status due to recent suicidal ideation/attempt. Unfortunately, the patient did become combative with staff requiring sedation with IV Haldol, Ativan, and Benadryl; she is remained somnolent since that time. At the time of my exam, she was not noted to be in any acute distress, pupils were equal round and reactive to light, breathing even and unlabored, she is minimally responsive to verbal and tactile stimuli but did withdraw from pain. She is referred to the hospitalist service for observational admission and management of the above-stated complaints and findings. Past Medical History Cardiac Medical History: Reports: None Pulmonary Medical History: Reports: Asthma EENT Medical History: Reports: None Neurological Medical History: Reports: None Endocrine Medical History: Reports: None Renal/ Medical History: Reports: None Malignancy Medical History: Reports: None GI Medical History: Reports: None Musculoskeltal Medical History: Reports: None Psychiatric Medical History: Reports: Bipolar Disorder, Depression, Substance Abuse Traumatic Medical History: Reports: None Hematology: Reports: None Infectious Medical History: Reports: None Past Surgical History Past Surgical History: Reports: None Social History Information Source: Emergency Med Personnel, [facility] Records Lives with: Parents Smoking Status: Current Every Day Smoker Hx Recreational Drug Use: Yes Drugs: Marijuana, Other - Amphetamines - Advance Directive Resuscitation Status: Full Code Family History Parental Family History Reviewed: No - Unable to obtain due to patient's mental status Children Family History Reviewed: No Sibling(s) Family History Reviewed.: No Medication/Allergy Home Medications: No Home Medications 07/03/18 Allergies/Adverse Reactions: No Known Allergies Allergy (Verified 12/23/16 17:54) Review of Systems ROS unobtainable: Due to mental status Physical Exam Vital Signs: Temp Pulse Resp BP Pulse Ox 97.4 F 79 12 105/73 99 07/03/18 07:02 07/03/18 07:02 07/03/18 16:01 07/03/18 16:01 07/03/18 16:01 Intake & Output 07/02/18 07/03/18 07/04/18 06:59 06:59 06:59 Intake Total 1000 1000 Balance 1000 1000 Weight 66.4 kg General appearance: PRESENT: no acute distress, well-developed, well-nourished Head exam: PRESENT: atraumatic, normocephalic Eye exam: PRESENT: conjunctiva pink, EOMI, PERRLA. ABSENT: scleral icterus Ear exam: PRESENT: normal external ear exam Mouth exam: PRESENT: moist, tongue midline Neck exam: ABSENT: carotid bruit, JVD, lymphadenopathy, thyromegaly Respiratory exam: PRESENT: clear to auscultation anil, symmetrical, unlabored. ABSENT: rales, wheezes Cardiovascular exam: PRESENT: RRR, +S1, +S2. ABSENT: diastolic murmur, rubs, systolic murmur Pulses: PRESENT: normal dorsalis pedis pul Vascular exam: PRESENT: normal capillary refill GI/Abdominal exam: PRESENT: normal bowel sounds, soft. ABSENT: distended, guarding, mass, organolmegaly, rebound, tenderness Rectal exam: PRESENT: deferred Extremities exam: PRESENT: full ROM. ABSENT: calf tenderness, clubbing, pedal edema Neurological exam: PRESENT: altered, CN II-XII grossly intact, other - Somnolent; minimal response to verbal and tactile stimuli, does withdraw to pain.. ABSENT: motor sensory deficit Skin exam: PRESENT: dry, intact, warm. ABSENT: cyanosis, rash Results Laboratory Results: 07/03/18 03:29 07/03/18 03:29 07/03/18 07/03/18 07/03/18 03:29 03:29 03:29 WBC 7.3 RBC 4.85 Hgb 14.6 Hct 43.0 MCV 89 MCH 30.1 MCHC 33.9 RDW 13.2 Plt Count 258 Seg Neutrophils % 70.5 Lymphocytes % 18.9 Monocytes % 6.7 Eosinophils % 2.7 Basophils % 1.2 Absolute Neutrophils 5.1 Absolute Lymphocytes 1.4 Absolute Monocytes 0.5 Absolute Eosinophils 0.2 Absolute Basophils 0.1 Sodium 142.3 Potassium 4.8 Chloride 106 Carbon Dioxide 27 Anion Gap 9 BUN 8 Creatinine 0.84 Est GFR ( Amer) > 60 Est GFR (Non-Af Amer) > 60 Glucose 111 H Calcium 9.6 Total Bilirubin 0.8 AST 32 ALT 30 Alkaline Phosphatase 64 Total Protein 7.4 Albumin 3.9 Serum HCG, Qual NEGATIVE Urine Color Urine Appearance Urine pH Ur Specific [place] Urine Protein Urine Glucose (UA) Urine Ketones Urine Blood Urine Nitrite Ur Leukocyte Esterase Ur Squamous Epith Cells 07/03/18 10:34 WBC RBC Hgb Hct MCV MCH MCHC RDW Plt Count Seg Neutrophils % Lymphocytes % Monocytes % Eosinophils % Basophils % Absolute Neutrophils Absolute Lymphocytes Absolute Monocytes Absolute Eosinophils Absolute Basophils Sodium Potassium Chloride Carbon Dioxide Anion Gap BUN Creatinine Est GFR ( Amer) Est GFR (Non-Af Amer) Glucose Calcium Total Bilirubin AST ALT Alkaline Phosphatase Total Protein Albumin Serum HCG, Qual Urine Color YELLOW Urine Appearance CLOUDY Urine pH 6.0 Ur Specific [place] 1.031 Urine Protein 30 H Urine Glucose (UA) NEGATIVE Urine Ketones 25 H Urine Blood NEGATIVE Urine Nitrite NEGATIVE Ur Leukocyte Esterase TRACE H Ur Squamous Epith Cells RARE Impressions: Chest X-Ray 07/03/18 09:44 IMPRESSION: NO SIGNIFICANT RADIOGRAPHIC FINDING IN THE CHEST. Head CT 07/03/18 14:41 IMPRESSION: NORMAL BRAIN CT WITHOUT CONTRAST. EVIDENCE OF ACUTE STROKE: NO. Assessment and Plan - Diagnosis (1) Altered mental status Qualifiers: Altered mental status type: transient alteration of awareness Qualified Code(s): R40.4 - Transient alteration of awareness Is this a current diagnosis for this admission?: Yes Plan: Likely secondary to substance abuse. Patient admits to amphetamine use as recent as 4 days ago; perhaps post-binge fatigue? CT head negative. CXR benign. Laboratory evaluation is unremarkable. Serial EKGs show nml and improved Qtc interval. Patient is admitted to [facility] on continuous cardiac telemetry. Mental health services is consulted; currently under IVC status. 1:1 sitter for safety. Gentle IVF to prevent dehydration or possible development of rhabdomyolysis. Will check CK w/ AM lab work. Fall, seizure, aspiration, and suicide precautions. (2) Bipolar disorder Qualifiers: Qualified Code(s): F31.9 - Bipolar disorder, unspecified Is this a current diagnosis for this admission?: Yes Plan: Mental health services is consulted; will defer medication resumption to their expertise. Per ED department records, the patient's mother reported that she has been off her medications for approximately 3 weeks due to loss of insurance. (3) Combative behavior Is this a current diagnosis for this admission?: Yes Plan: Secondary to #1. Evaluation management as above. (4) Substance abuse Is this a current diagnosis for this admission?: Yes Plan: UDS positive for marijuana; Amphetamines were indeterminate secondary to interfering substances. Patient and mother confirm amphetamine use 4 days ago. Drug paraphernalia found upon arrival to the emergency department. Discharge planning, patient navigator, and mental health services are consulted. - Time Time Spent with patient: 35 or more minutes Medications reviewed and adjusted accordingly: Yes
[2018-07-03] MEDS: HEPARIN SOD (PORCINE) 5,000 UNIT/ML 1 ML SYRINGE SUBCUT SCH (21:28)
[2018-07-04] MEDS ORDERED: ALBUTEROL SULFATE HFA (90 MCG/PUFF) 200 PUFF/8.5 GM MDI IH PRN (04:01)
[2018-07-04] MEDS ORDERED: ALBUTEROL SULFATE HFA (90 MCG/PUFF) 200 PUFF/8.5 GM MDI IH ONE (04:02)
[2018-07-04] MEDS ORDERED: OCTREOTIDE ACETATE INJ/PF 100 MCG/1 ML SDV ONE (04:07)
[2018-07-04] MEDS: HEPARIN SOD (PORCINE) 5,000 UNIT/ML 1 ML SYRINGE SUBCUT SCH ×2 (04:59→13:52)
[2018-07-04 06:39] LABS: HEMATOCRIT 37.7 % (36.0-47.0); HEMOGLOBIN 12.7 g/dL (12.0-15.5); MEAN CORPUSCULAR HGB CONC 33.7 g/dL (32.0-36.0); MEAN CORPUSCULAR VOLUME 89 fl (80-97); PLATELET COUNT 212 10^3/uL (150-450); RED BLOOD COUNT 4.23 10^6/uL (3.72-5.28); RED CELL DISTRIBUTION WIDTH 13.1 % (11.5-14.0); WHITE BLOOD COUNT 6.5 10^3/uL (4.0-10.5)
[2018-07-04 07:02] LABS: ANION GAP 8 (5-19); BLOOD UREA NITROGEN 6 mg/dL (7-20); CALCIUM 9.1 mg/dL (8.4-10.2); CARBON DIOXIDE 22 mmol/L (22-30); CHLORIDE 109 mmol/L (98-107); CREATINE KINASE 172 U/L (30-135); GLUCOSE 75 mg/dL (75-110); POTASSIUM 3.8 mmol/L (3.6-5.0); SODIUM 139.2 mmol/L (137-145)
[2018-07-04] MEDS ORDERED: PANTOPRAZOLE SODIUM 40 MG VIAL IV SCH (08:00)
[2018-07-04] MEDS ORDERED: ALBUTEROL SULFATE 0.083% NEB 2.5 MG/3 ML AMPUL NEB SCH (08:00)
--- NOTE | 2018-07-04 08:43 | EKG REPORT ---
SEVERITY:- NORMAL ECG - SINUS RHYTHM : Confirmed by: Peng Levi 04-Jul-2018 08:40:11
--- NOTE | 2018-07-04 16:45 | PSYCHOLOGICAL NOTE ---
Psych Note - Psych Note Date seen by psych provider: 07/04/18 Time seen by psych provider: 16:20 - 1630 Psych Note: Reason for consult: Overdose Patient reports that she had to come to [facility] because she overdosed. She denies that this was intentional and becomes tearful. She disclosed that she was using methamphetamine on a binge and confirms this is the first time she overdosed. Patient says that she does not need assistance and/or resources for sobriety; she discloses "I am not ever going to touch that again now I have a 1-year-old son that needs me... never again my going to use it." Patient denies that her son was with her stating that she has her son every other week. She discloses that on Sundays they switch and reports that "I never use when I have him because that is his time...to be with him and take care of him." Patient reports that she has a diagnosis of "bipolar, schizophrenia, multiple personality, ADHD, ADD, OCD..." She discloses that she has been off her medication because she lost her Medicaid and that once she is back on her medication she will be "good." She confirms she would like resources and assistance in obtaining a provider that she can see without insurance. Patient is alert and orientated to person, place, time and circumstance. Mood is dysphoric with tearful affect when discussing her accidental overdose. Patient denies suicidal and homicidal ideation. Delusions are absent behaviors congruent with an intact reality based presentation i.e. organized linear thought process. Eye contact is well-maintained. Conversational speech is within normal rate, tone and prosody. Intellectual abilities appear to be within the average range. Attention and concentration are good. Insight, judgment, impulse control are fair. No medication recommendations at this time Substance abuse; methamphetamine Bipolar per history provided by patient Unspecified personality disorder; patient demonstrates cluster B personality traits Impression\\plan: Patient is recommended for rescind of IVC and is cleared from acute psychiatric services. Patient accidentally overdosed on methamphetamine. She confirms she was binging prior to being found unresponsive. When asked if she is interested in information on sobriety and assistance she discloses "no because I am not ever going to touch that again." Patient was alone when she accidentally overdosed and reports that she does not use any drugs when she has her week with her son; "that is his time." Patient has split custody with the biological father 1 week on 1 week off. Patient demonstrates forward thinking and identifying that she has a 1-year-old son that needs her and denies thoughts of wanting to harm herself. Patient confirms she is lost her Medicaid and since has been unable to pay for her medications. She is interested in in resources to obtain outpatient mental health providers that can assist her even without insurance; this has been provided. Dr. Mariano was consulted and the care management of this patient; attending physicians in agreement with recommendations and disposition.
[2018-07-04 20:01] VITALS: BP 114/64
--- NOTE | 2018-07-07 16:18 | PDOC DISCHARGE SUMMARY ---
General - Admit/Disc Date/PCP Admission Date/Primary Care Provider: 07/03/18 14:59 Discharge Date: 06/04/18 - Discharge Diagnosis (1) Altered mental status Is this a current diagnosis for this admission?: Yes (2) Bipolar disorder Is this a current diagnosis for this admission?: Yes (3) Combative behavior Is this a current diagnosis for this admission?: Yes (4) Substance abuse Is this a current diagnosis for this admission?: Yes - Additional Information Resuscitation Status: Full Code Discharge Diet: Regular Discharge Activity: Activity As Tolerated, Balance Activity w/Rest Home Medications: Acetaminophen [Tylenol 325 mg Tablet] 650 mg PO Q4HP PRN tablet 07/04/18 History of Present Illness History of Present Illness: MYLENE MONSALVE is a 23 year old female with a known past medical history of substance abuse and suicidal ideation who presented to the emergency department today via EMS for complaint of decreased mental status. The patient was reportedly found sleeping in her car and when she was difficult to arouse, EMS was notified. Patient confirms methamphetamine use as recently as 4 days ago. Per ED provider and nursing notes, white powder was noted to the patient's nare and razor blade and straw were found in the patient's clothing. Evaluation by the emergency department provider was essentially unremarkable with a normal chest x-ray, head CT, and unremarkable laboratory evaluation including negative serum hCG, and drug screen notable only for marijuana (amphetamines could not be reported due to interfering substance). Psychiatric services were consulted and she has been placed under IVC status due to recent suicidal ideation/attempt. Unfortunately, the patient did become combative with staff requiring sedation with IV Haldol, Ativan, and Benadryl; she is remained somnolent since that time. At the time of my exam, she was not noted to be in any acute distress, pupils were equal round and reactive to light, breathing even and unlabored, she is minimally responsive to verbal and tactile stimuli but did withdraw from pain. She is referred to the hospitalist service for observational admission and management of the above-stated complaints and findings. Hospital Course Hospital Course: The patient was admitted to [facility] on continuous cardiac telemetry under IVC status with fall, seizure, aspiration precautions and sitter for 1:1 safety. She was provided IV fluids overnight. The following morning, the patient was A&Ox4 with stable vital signs and normal EKG findings. The patient met with mental health services, to whom she disclosed that she had been on a methamphetamine binge resulting in accidental overdose. She is medically and psychiatrically cleared for discharge. At time of discharge, patient is in stable condition, maintaining oxygen saturations on room air, asymptomatic and tolerating a regular diet. Patient is advised to follow up with her primary care provider within 1 week. She is encouraged to establish with a mental health provider as soon as possible. She is also encouraged to meet with a substance abuse court manager or other substance abuse support system. She is instructed to return to the emergency department as needed for any concerning symptoms. Physical Exam Vital Signs: Temp Pulse Resp BP Pulse Ox 98.1 F 86 20 114/64 100 07/04/18 19:38 07/04/18 19:38 07/04/18 19:38 07/04/18 19:38 07/04/18 19:38 General appearance: PRESENT: no acute distress, well-developed, well-nourished Head exam: PRESENT: atraumatic, normocephalic Eye exam: PRESENT: conjunctiva pink, EOMI, PERRLA. ABSENT: scleral icterus Ear exam: PRESENT: normal external ear exam Mouth exam: PRESENT: moist, tongue midline Neck exam: ABSENT: carotid bruit, JVD, lymphadenopathy, thyromegaly Respiratory exam: PRESENT: clear to auscultation anil. ABSENT: rales, rhonchi, wheezes Cardiovascular exam: PRESENT: RRR. ABSENT: diastolic murmur, rubs, systolic murmur Pulses: PRESENT: normal dorsalis pedis pul Vascular exam: PRESENT: normal capillary refill GI/Abdominal exam: PRESENT: normal bowel sounds, soft. ABSENT: distended, guarding, mass, organolmegaly, rebound, tenderness Rectal exam: PRESENT: deferred Extremities exam: PRESENT: full ROM. ABSENT: calf tenderness, clubbing, pedal edema Neurological exam: PRESENT: alert, awake, oriented to person, oriented to place, oriented to time, oriented to situation, CN II-XII grossly intact. ABSENT: motor sensory deficit Psychiatric exam: PRESENT: appropriate affect, depressed - tearful, normal mood. ABSENT: homicidal ideation, suicidal ideation Skin exam: PRESENT: dry, intact, warm. ABSENT: cyanosis, rash Results Laboratory Results: 07/04/18 06:00 07/04/18 06:00 07/04/18 06:00 Creatine Kinase 172 H Impressions: Chest X-Ray 07/03/18 09:44 IMPRESSION: NO SIGNIFICANT RADIOGRAPHIC FINDING IN THE CHEST. Head CT 07/03/18 14:41 IMPRESSION: NORMAL BRAIN CT WITHOUT CONTRAST. EVIDENCE OF ACUTE STROKE: NO. Qualifiers - * PATIENT BEING DISCHARGED WITH ANY OF THE FOLLOWING DIAGNOSIS: No Acute Heart Failure Is this a Heart Failure Patient?: No Plan Discharge Plan: Follow-up with primary care provider within 1 week. Establish with a mental health provider as soon as possible. Do not drink alcohol or use recreational drugs. Return to the emergency department as needed for concerning symptoms. Time Spent: Greater than 30 Minutes
== END 2018-07-04 19:38 | disposition home or self-care (01) ==
LOC: ER 00:30 → INTOOBSV 14:59 → EH 14:59 → 3S 17:54
PROVIDERS: ADMIT Family Medicine; ATTEND Family Medicine
DX: R40.4 Transient alteration of awareness (principal); F31.9 Bipolar disorder, unspecified; F91.8 Other conduct disorders; F15.10 Other stimulant abuse, uncomplicated; T43.621A Poisoning by amphetamines, accidental (unintentional), initial encounter; F12.10 Cannabis abuse, uncomplicated; F90.9 Attention-deficit hyperactivity disorder, unspecified type; R45.6 Violent behavior; Z59.8 Other problems related to housing and economic circumstances; F20.9 Schizophrenia, unspecified; F44.81 Dissociative identity disorder; F42.9 Obsessive-compulsive disorder, unspecified; R05 Cough; R06.2 Wheezing; F17.210 Nicotine dependence, cigarettes, uncomplicated; Z87.09 Personal history of other diseases of the respiratory system
CPT/HCPCS: 93005 ×2; 94640 ×2; 99285; 96372; 96360; 96361; 51702; 36415 ×2; 87086; 80307 ×4; 82550; 84443; 84703; 85025; 85027; 80048; 80053; 80175; 81001; 71045; 70450; 93010 ×2; J1630; J2060; S0164; J7030 ×2; J3490; G0378

== ENCOUNTER 2019-01-17 04:03 | Emergency (ER) | payer SELFPAY ==
[2019-01-17] MEDS ORDERED: NORMAL SALINE 1000 ML 1,000 ML IV ONE (04:41)
--- NOTE | 2019-01-17 04:42 | ER Document Report ---
ED General - General Chief Complaint: Asthma Exacerbation Stated Complaint: SHORTNESS OF BREATH Time Seen by Provider: 01/17/19 04:31 Notes: Patient is a 23-year-old female that comes emergency department for chief complaint of shortness of breath. She came by EMS, reportedly she was wheezing with initial oxygen saturation of 89%, she was given 2 DuoNeb's and afterwards this resolved. Patient states she has been feeling feverish, tired, and generally unwell for almost a month now. She states that her urine is dark. She states she uses methamphetamines, last use was 3 days ago, she states she is worn out, she thinks this is catching up to her, she states she wants to get clean for her son and she is asking for help to get clean. She denies alcohol, recreational drugs otherwise, or any daily medications. Only past medical history reported is tobacco smoking and asthma. She denies . TRAVEL OUTSIDE OF THE [place] IN LAST 30 DAYS: No - Related Data Allergies/Adverse Reactions: tomato Allergy (Mild, Verified 09/16/18 11:27) Asthma No Known Drug Allergies Allergy (Verified 09/16/18 11:27) Past Medical History - Social History Smoking Status: Current Every Day Smoker Frequency of alcohol use: None Drug Abuse: None Family History: Reviewed & Not Pertinent Patient has suicidal ideation: No Patient has homicidal ideation: No Pulmonary Medical History: Reports: Hx Asthma Renal/ Medical History: Denies: Hx Peritoneal Dialysis Psychiatric Medical History: Reports: Hx Bipolar Disorder, Hx Depression, Hx Schizophrenia Past Surgical History: Reports: Hx Oral Surgery - wisdom teeth - Immunizations Hx Diphtheria, Pertussis, Tetanus Vaccination: No Physical Exam - Vital signs Vitals: Temp Pulse Resp BP 98.0 F 104 H 16 142/76 H 01/17/19 04:04 01/17/19 04:04 01/17/19 04:04 01/17/19 04:04 Course - Vital Signs Vital signs: Temp Pulse Resp BP Pulse Ox 98.0 F 104 H 16 142/76 H 01/17/19 04:04 01/17/19 04:04 01/17/19 04:04 01/17/19 04:04
--- NOTE | 2019-01-17 05:40 | ER Document Report ---
ED Medical Screen (RME) - General Chief Complaint: Asthma Exacerbation Stated Complaint: SHORTNESS OF BREATH Time Seen by Provider: 01/17/19 04:31 Notes: Patient is a 23-year-old female that comes emergency department for chief complaint of shortness of breath. She came by EMS, reportedly she was wheezing with initial oxygen saturation of 89%, she was given 2 DuoNeb's and afterwards this resolved. Patient states she has been feeling feverish, tired, and generally unwell for almost a month now. She states that her urine is dark. She states she uses methamphetamines, last use was 3 days ago, she states she is worn out, she thinks this is catching up to her, she states she wants to get clean for her son and she is asking for help to get clean. She denies alcohol, recreational drugs otherwise, or any daily medications. Only past medical history reported is tobacco smoking and asthma. She denies . TRAVEL OUTSIDE OF THE [place] IN LAST 30 DAYS: No - Related Data Allergies/Adverse Reactions: tomato Allergy (Mild, Verified 09/16/18 11:27) Asthma No Known Drug Allergies Allergy (Verified 09/16/18 11:27) Past Medical History - Social History Frequency of alcohol use: None Drug Abuse: None Pulmonary Medical History: Reports: Hx Asthma Renal/ Medical History: Denies: Hx Peritoneal Dialysis Psychiatric Medical History: Reports: Hx Bipolar Disorder, Hx Depression, Hx Schizophrenia Past Surgical History: Reports: Hx Oral Surgery - wisdom teeth - Immunizations Hx Diphtheria, Pertussis, Tetanus Vaccination: No Physical Exam - Vital signs Vitals: Temp Pulse Resp BP 98.0 F 104 H 16 142/76 H 01/17/19 04:04 01/17/19 04:04 01/17/19 04:04 01/17/19 04:04 - Cardiovascular Rhythm: Regular, Tachycardia Heart sounds: Normal auscultation, S1 appreciated, S2 appreciated Murmur: No Course - Re-evaluation Re-evalutation: Patient was initially with oxygen saturation of 92 to 94%, tachycardic on my evaluation. Work-up pending - Vital Signs Vital signs: Temp Pulse Resp BP Pulse Ox 98.0 F 104 H 16 142/76 H 01/17/19 04:04 01/17/19 04:04 01/17/19 04:04 01/17/19 04:04
--- NOTE | 2019-01-17 06:17 | RADIOLOGY REPORT (SQ) ---
Chest 2 view on 01/17/2019 at 5:25 AM CLINICAL INDICATION: Chest pain, IV drug abuse COMPARISON: 07/03/2018 FINDINGS: The lungs are clear. Cardiac, hilar and mediastinal contours are within normal limits. Pulmonary vascularity is within normal limits. No bony abnormality is noted. IMPRESSION: No active disease.
[2019-01-17 06:45] LABS: ABSOLUTE BASOPHILS # (AUTO) 0.1 10^3/uL (0.0-0.2); ABSOLUTE EOSINOPHILS # (AUTO) 0.6 10^3/uL (0.0-0.6); ABSOLUTE LYMPHOCYTES (AUTO) 3.2 10^3/uL (0.5-4.7); ABSOLUTE MONOCYTES (AUTO) 0.7 10^3/uL (0.1-1.4); ABSOLUTE NEUT (AUTO) 3.8 10^3/uL (1.7-8.2); EOSINOPHILS % (AUTO) 6.7 % (0-6); HEMATOCRIT 44.4 % (36.0-47.0); HEMOGLOBIN 14.9 g/dL (12.0-15.5); LYMPHOCYTES % (AUTO) 38.1 % (13-45); MEAN CORPUSCULAR HEMOGLOBIN 29.5 pg (27.0-33.4); MEAN CORPUSCULAR HGB CONC 33.5 g/dL (32.0-36.0); MEAN CORPUSCULAR VOLUME 88 fl (80-97); MONOCYTES % (AUTO) 8.4 % (3-13); PLATELET COUNT 275 10^3/uL (150-450); RED BLOOD COUNT 5.03 10^6/uL (3.72-5.28); SEGMENTED NEUTROPHILS % (AUTO) 45.8 % (42-78); TOTAL CELLS COUNTED % (AUTO) 100 %; WHITE BLOOD COUNT 8.4 10^3/uL (4.0-10.5)
--- NOTE | 2019-01-17 07:10 | ER Document Report ---
Entered by MARSHA BEAUCHAMP SCRIBE 01/17/19 0650 Acting as scribe for:PATRICIO BARKLEY MD ED General <B[place] - Last Filed: 01/17/19 13:31> - General Mode of Arrival: Medic Information source: Emergency Med Personnel, [facility] Records Cannot obtain history due to: Altered mental status TRAVEL OUTSIDE OF THE [place] IN LAST 30 DAYS: No <PATRICIO BARKLEY - Last Filed: 01/17/19 14:49> - General Chief Complaint: Asthma Exacerbation Stated Complaint: SHORTNESS OF BREATH Time Seen by Provider: 01/17/19 04:31 Notes: This 23-year-old female patient with asthma presents to the emergency department today for complaints of possible asthma exacerbation as well as feeling ge nerally unwell for the last month or so. EMS states that the patient had a room air oxygen saturation of 89% with considerable wheezing when they arrived on scene. Patient was given 2 DuoNeb treatments in route here which controlled the wheezing. Patient told the E provider that she abuses methamphetamine and she wishes to get help stopping this as "she has a son to live for". According to R DE notes, the last use of meth was 3 days ago. History is all from nursing and RME provider notes. Patient is somnolent and difficult to arouse, provides no history. Pertinent PMHx/PSHx: Asthma. Bipolar disorder. Depression. Schizophrenia. - additional PMHx/PSHx not pertinent to this visit as recorded. (PATRICIO BARKLEY) - Related Data Allergies/Adverse Reactions: tomato Allergy (Mild, Verified 09/16/18 11:27) Asthma No Known Drug Allergies Allergy (Verified 09/16/18 11:27) Past Medical History - General Information source: [facility] Records Cannot obtain history due to: Altered mental status - Social History Smoking Status: Current Every Day Smoker Cigarette use (# per day): Yes Frequency of alcohol use: None Drug Abuse: Methamphetamine Family History: Reviewed & Not Pertinent Patient has suicidal ideation: No Patient has homicidal ideation: No Pulmonary Medical History: Reports: Hx Asthma Psychiatric Medical History: Reports: Hx Bipolar Disorder, Hx Depression, Hx Schizophrenia Past Surgical History: Reports: Hx Oral Surgery - wisdom teeth - Immunizations Hx Diphtheria, Pertussis, Tetanus Vaccination: No <PATRICIO BARKLEY - Last Filed: 01/17/19 14:49> Review of Systems - Review of Systems -: Yes ROS unobtainable due to patient's medical condition <PATRCIIO BARKLEY - Last Filed: 01/17/19 14:49> Physical Exam <PATRICIO BARKLEY - Last Filed: 01/17/19 14:49> - Vital signs Vitals: Temp Pulse Resp BP 98.0 F 104 H 16 142/76 H 01/17/19 04:04 01/17/19 04:04 01/17/19 04:04 01/17/19 04:04 - Notes Notes: Physical Exam: General: Somnolent, not easily arousable. HEENT: Normocephalic. Atraumatic. PERRL. Neck: Supple. Respiratory: No respiratory distress. Clear and equal breath sounds bilaterally. No wheezing. Cardiovascular: Regular rate and rhythm. Not tachycardic. Abdominal: Normal Inspection. Non-tender. No distension. Normal Bowel Sounds. Back: No gross abnormalities. Extremities: Moves all four extremities. Upper extremities: Normal inspection. Normal ROM. Lower extremities: Normal inspection. No edema. Normal ROM. Neurological: Somnolent. Provides no history, doesn't arouse easily. Psychological: unable to assess Skin: Multiple excoriations (PATRICIO BARKLEY) Course - Laboratory Result Diagrams: 01/17/19 06:30 01/17/19 06:30 <BING PARK - Last Filed: 01/17/19 13:31> - Laboratory Result Diagrams: 01/17/19 06:30 01/17/19 06:30 - Diagnostic Test Radiology reviewed: Image reviewed, Reports reviewed - Chest x-ray does not show active disease - EKG Interpretation by Pr EKG shows normal: Sinus rhythm, [place], Intervals, QRS Complexes, ST-T Waves Rate: Normal - 96 Rhythm: NSR <RUBIA,PATRICIO - Last Filed: 01/17/19 14:49> - Re-evaluation Re-evalutation: 01/17/19 10:48 The patient is been here about 7 hours, has had 2 L of IV fluids, has not urinated yet. She will get an additional liter of IV fluids now. She remains sound asleep and very difficult to arouse, I suspect she has been on a meth binge and is now coming down. 01/17/19 13:56 The patient's mother is here at this time. She told the nurse that methamphetamine binges and then long periods of sleeping are not uncommon for the patient. The patient told the nurse that she does not want the urine results reviewed with the mother because she also used heroin last night and does not want her to know about the heroin use. (PATRICIO BARKLEY) - Vital Signs Vital signs: Temp Pulse Resp BP Pulse Ox 98.0 F 104 H 16 97/58 L 99 01/17/19 04:04 01/17/19 04:04 01/17/19 13:01 01/17/19 13:01 01/17/19 11:01 - Laboratory Laboratory results interpreted by me: 01/17/19 01/17/19 01/17/19 06:30 06:30 13:53 Eos % (Auto) 6.7 H Urine Glucose (UA) 150 H Ur Leukocyte Esterase TRACE H Salicylates < 1.0 L Acetaminophen < 10 L Discharge <[place] - Last Filed: 01/17/19 13:31> <PATRICIO BARKLEY - Last Filed: 01/17/19 14:49> - Discharge Clinical Impression: Substance abuse, Methamphetamine abuse, Heroin abuse Exacerbation of asthma Qualifiers: Asthma severity: mild Asthma persistence: intermittent Qualified Code(s): J45.21 - Mild intermittent asthma with (acute) exacerbation Condition: Stable Disposition: HOME, SELF-CARE Additional Instructions: You have been evaluated by both medical and behavioral health teams and have been deemed appropriate for discharge. You have elected to voluntarily continue substance abuse AMPHETAMINE / METHAMPHETAMINE ABUSE: Amphetamines are addicting stimulants. Amphetamines overstimulate the nervous system and give a false feeling of power and mastery. These drugs may be obtained as prescription pills for weight loss, narcolepsy, or attention-deficit disorder. More often they're bought as an illegal street drug, methamphetamine (crank, crystal, speed). Using amphetamines repeatedly can lead to serious medical problems including malnutrition, severe depression, and paranoia. It can take increasing amounts to feel good. Eventually, there will be a "burn out." When you go off amphetamines there is a period of depression that may last for weeks or even months. High doses of amphetamines can cause seizures, confusion, hallucinations, delusions, high blood pressure, muscle damage, heart damage, or sudden . Many times these deadly complications occur even with "normal" doses. Injection of amphetamines is risky for developing abscesses, endocarditis (heart infection), pneumonia, and AIDS. Withdrawal from amphetamines often causes anxiety, depression, and drug cravings. Some users become paranoid and psychotic. There may be cramps, nausea, and vomiting. Many treatment programs are available, but you must make the decision to quit. Medication can be prescribed to control the symptoms of amphetamine toxicity (beta blockers or benzodiazepines). Withdrawal symptoms may require tranquilizers. AT ANY TIME, IF YOUR SYMPTOMS CHANGE SIGNIFICANTLY OR WORSEN OR YOU DEVELOP NEW SYMPTOMS, RETURN TO THE EMERGENCY DEPARTMENT IMMEDIATELY FOR RE-EVALUATION. Scribe Attestation: 01/17/19 08:12 I personally performed the services described in the documentation, reviewed and edited the documentation which was dictated to the scribe in my presence, and it accurately records my words and actions. (PATRICIO BARKLEY) I personally performed the services described in the documentation, reviewed and edited the documentation which was dictated to the scribe in my presence, and it accurately records my words and actions.
[2019-01-17 07:11] LABS: ALBUMIN 3.9 g/dL (3.5-5.0); ALKALINE PHOSPHATASE 70 U/L (38-126); ANION GAP 10 (5-19); ASPARTATE AMINO TRANSFERASE 16 U/L (14-36); BILIRUBIN,DIRECT 0.1 mg/dL (0.0-0.4); BILIRUBIN,TOTAL 0.4 mg/dL (0.2-1.3); BLOOD UREA NITROGEN 12 mg/dL (7-20); CALCIUM 9.6 mg/dL (8.4-10.2); CARBON DIOXIDE 27 mmol/L (22-30); CHLORIDE 105 mmol/L (98-107); GLUCOSE 100 mg/dL (75-110); POTASSIUM 3.6 mmol/L (3.6-5.0); TOTAL PROTEIN 7.3 g/dL (6.3-8.2)
[2019-01-17 07:12] LABS: ACETAMINOPHEN < 10 ug/mL (10-30); ALCOHOL < 10 mg/dL (NONE DETECTED); SALICYLATE < 1.0 mg/dL (2.0-20.0)
[2019-01-17] MEDS ORDERED: DEXTROSE 5%-LACTATED RINGERS 1,000 ML IV ONE (08:11)
[2019-01-17] MEDS ORDERED: RINGERS SOLUTION,LACTATED 1,000 ML IV ONE (10:44)
--- NOTE | 2019-01-17 12:58 | EKG REPORT ---
SEVERITY:- NORMAL ECG - SINUS RHYTHM : Confirmed by: Zayda Ray MD 17-Jan-2019 12:57:48
--- NOTE | 2019-01-17 13:41 | PSYCHOLOGICAL NOTE ---
Psych Note - Psych Note Date seen by psych provider: 01/17/19 Time seen by psych provider: 08:53 Psych Note: Presenting Problem: Substance Abuse. Patient reported history of Methamphetamine use and told medical staff last use was 3 days ago. She stated she wanted help w [facility] detox and "needs to do this for her son." She was difficult to arouse and required constant repetition of her name and gentle shake of upper extremity. She stated she still wants help and gave verbal consent to link and provide referral to the [facility] for voluntary inpatient detox and treatment. She commented she is supposed to get her son Sunday and still wants to be able to do that (future/forward/goal oriented thinking). Mother came to visit patient. Patient gave verbal consent to speak freely about plan of care in front of mother. Mother stated "this is what she does" when informed patient has been sleeping all day. Attending nurse stated patient asked that her drug screen results not be discussed in front of her mother because mother is aware of the methamphetamine use but she recently used heroin and mother is unaware. Diagnosis: Methamphetamine Withdrawal Methamphetamine Use Disorder, Severe Impression/Plan: Patient is cleared from acute psychiatric services. She denied SI/HI and these were never presenting concerns. She came via EMS for reported methamphetamine withdrawal and desire for detox. Coordination between [facility] team and [facility] has been ongoing for voluntary inpatient detox and treatment. Provided [facility] demographic sheet on patient for QRT Program referral. [facility] Griselda stated they had been looking for patient and patient is saying she will go to [facility] Sunday after she gets her son on Sunday. Griselda said [facility] can provide transportation to [facility] on Sunday. Consulted with Dr. Mariano regarding the management and care of patient. ED Physician in agreement with recommendation.
[2019-01-17 14:16] LABS: APPEARANCE,URINE SLIGHTLY-CLOUDY; BILIRUBIN,URINE NEGATIVE (NEGATIVE); COLOR,URINE YELLOW; GLUCOSE, URINE 150 mg/dL (NEGATIVE); KETONES,URINE NEGATIVE (NEGATIVE); LEUKOCYTE ESTERASE,URINE TRACE (NEGATIVE); NITRITE,URINE NEGATIVE (NEGATIVE); PROTEIN,URINE NEGATIVE (NEGATIVE); URINE SPECIFIC GRAVITY 1.016; UROBILINOGEN,URINE NEGATIVE mg/dL (<2.0)
[2019-01-17 14:31] LABS: URINE BARBITURATES SCREEN NEGATIVE; URINE BENZODIAZEPINES SCREEN NEGATIVE; URINE COCAINE SCREEN NEGATIVE; URINE MARIJUANA (THC) SCREEN NEGATIVE; URINE METHADONE SCREEN NEGATIVE; URINE PHENCYCLIDINE SCREEN NEGATIVE
[2019-01-17 15:18] VITALS: BP 106/86
== END 2019-01-17 15:19 | disposition home or self-care (01) ==
LOC: ER 04:03
DX: J45.21 Mild intermittent asthma with (acute) exacerbation (principal); F15.90 Other stimulant use, unspecified, uncomplicated; F19.10 Other psychoactive substance abuse, uncomplicated; F17.210 Nicotine dependence, cigarettes, uncomplicated
CPT/HCPCS: 93005; 99285; 96360; 96361; 36415; 80307 ×4; 84703; 85025; 80053; 81001; 84484; 71046; 93010; J7121; J7030; J7120

== ENCOUNTER 2019-06-22 13:40 | Emergency (ER) | payer SELFPAY ==
--- NOTE | 2019-06-22 14:01 | ER Document Report ---
ED General - General Stated Complaint: VAGINAL BLEEDING Time Seen by Provider: 06/22/19 13:42 Mode of Arrival: Medic Information source: Patient Notes: Patient is a 24-year-old female with history of asthma, IBS, PTSD, anxiety, depression, bipolar and schizophrenia. She presents to the emergency department via EMS with initial complaints of vaginal bleeding. Patient reports to me she has not had any vaginal bleeding since 2 days ago. 2 days ago she passed a large blood clot. She states she has a Mirena and this has been in place for the last 2 years. She states that she has had a miscarriage in the past and she felt like it was a similar situation. Patient denies any nausea, vomiting, diarrhea, fevers, abdominal pain, vaginal bleeding or abnormal discharge. Patient reports to staff that she injects meth. Last use was 2 days ago. TRAVEL OUTSIDE OF THE [place] IN LAST 30 DAYS: No - Related Data Allergies/Adverse Reactions: tomato Allergy (Mild, Verified 09/16/18 11:27) Asthma No Known Drug Allergies Allergy (Verified 09/16/18 11:27) Past Medical History - General Information source: Patient - Social History Smoking Status: Current Every Day Smoker Frequency of alcohol use: None Drug Abuse: Methamphetamine Family History: Reviewed & Not Pertinent Pulmonary Medical History: Reports: Hx Asthma Renal/ Medical History: Denies: Hx Peritoneal Dialysis Psychiatric Medical History: Reports: Hx Bipolar Disorder, Hx Depression, Hx Schizophrenia Past Surgical History: Reports: Hx Oral Surgery - wisdom teeth - Immunizations Hx Diphtheria, Pertussis, Tetanus Vaccination: No Review of Systems - Review of Systems Female Genitourinary: Vaginal bleeding - 2 days ago -: Yes All other systems reviewed and negative Physical Exam - Vital signs Vitals: Temp 98.5 F 06/22/19 13:53 - Notes Notes: PHYSICAL EXAMINATION: GENERAL: Disheveled, unkempt. HEAD: Atraumatic, normocephalic. EYES: Pupils equal round and reactive to light, extraocular movements intact, conjunctiva are normal. ENT: Nares patent, oropharynx clear without exudates. Moist mucous membranes. NECK: Normal range of motion, supple without lymphadenopathy LUNGS: Breath sounds clear to auscultation bilaterally and equal. No wheezes rales or rhonchi. HEART: Regular rate and rhythm without murmurs ABDOMEN: Soft,nondistended abdomen. Tenderness to palpation of the right lower quadrant. No guarding, no rebound. No masses appreciated. Female : Cervix friable, no cervical motion tenderness noted. Very dark brown discharge noted. Musculoskeletal: Normal range of motion, no pitting or edema. No cyanosis. NEUROLOGICAL: Cranial nerves grossly intact. Normal speech, normal gait. Normal sensory, motor exams PSYCH: Normal mood, normal affect. SKIN: Scattered bruising noted, venipuncture spann noted to bilateral arms. Course - Re-evaluation Re-evalutation: 06/22/19 16:45 Laboratory 06/22/19 06/22/19 06/22/19 14:32 14:32 14:32 WBC 12.9 H RBC 5.12 Hgb 15.7 H Hct 44.7 MCV 87 MCH 30.7 MCHC 35.2 RDW 14.1 H Plt Count 378 Lymph % (Auto) 18.2 [place] % (Auto) 7.0 Eos % (Auto) 2.2 Baso % (Auto) 1.0 Absolute Neuts (auto) 9.3 H Absolute Lymphs (auto) 2.4 Absolute Monos (auto) 0.9 Absolute Eos (auto) 0.3 Absolute Basos (auto) 0.1 Seg Neutrophils % 71.6 Sodium 136.6 L Potassium 4.8 Chloride 102 Carbon Dioxide 25 Anion Gap 10 BUN 13 Creatinine 0.72 Est GFR ( Amer) > 60 Est GFR (MDRD) Non-Af > 60 Glucose 87 Calcium 9.9 Total Bilirubin 1.0 Direct Bilirubin 0.0 Neonat Total Bilirubin Not Reportable Neonat Direct Bilirubin Not Reportable Neonat Indirect Bili Not Reportable AST 25 ALT 21 Alkaline Phosphatase 87 Total Protein 8.7 H Albumin 4.7 Serum HCG, Qual NEGATIVE Urine Color Urine Appearance Urine pH Ur Specific [place] Urine Protein Urine Glucose (UA) Urine Ketones Urine Blood Urine Nitrite Urine Bilirubin Urine Urobilinogen Ur Leukocyte Esterase Urine WBC (Auto) Urine RBC (Auto) U Hyaline Cast (Auto) Urine Bacteria (Auto) Squamous Epi Cells Auto Urine Mucus (Auto) Urine Ascorbic Acid Bacteria (Wet Prep) Trichomonas (Wet Prep) Vaginal WBC Vaginal RBC Vaginal Yeast 06/22/19 06/22/19 14:32 15:29 WBC RBC Hgb Hct MCV MCH MCHC RDW Plt Count Lymph % (Auto) [place] % (Auto) Eos % (Auto) Baso % (Auto) Absolute Neuts (auto) Absolute Lymphs (auto) Absolute Monos (auto) Absolute Eos (auto) Absolute Basos (auto) Seg Neutrophils % Sodium Potassium Chloride Carbon Dioxide Anion Gap BUN Creatinine Est GFR ( Amer) Est GFR (MDRD) Non-Af Glucose Calcium Total Bilirubin Direct Bilirubin Neonat Total Bilirubin Neonat Direct Bilirubin Neonat Indirect Bili AST ALT Alkaline Phosphatase Total Protein Albumin Serum HCG, Qual Urine Color YELLOW Urine Appearance SLIGHTLY-CLOUDY Urine pH 5.0 Ur Specific [place] 1.026 Urine Protein 30 H Urine Glucose (UA) NEGATIVE Urine Ketones NEGATIVE Urine Blood MODERATE H Urine Nitrite NEGATIVE Urine Bilirubin NEGATIVE Urine Urobilinogen NEGATIVE Ur Leukocyte Esterase NEGATIVE Urine WBC (Auto) 5 Urine RBC (Auto) 2 U Hyaline Cast (Auto) 10 Urine Bacteria (Auto) TRACE Squamous Epi Cells Auto 7 Urine Mucus (Auto) MANY Urine Ascorbic Acid NEGATIVE Bacteria (Wet Prep) 3+ BACTERIA SEEN Trichomonas (Wet Prep) NO TRICHOMONAS SEEN Vaginal WBC 1+ WBCS SEEN Vaginal RBC 2+ RBCS SEEN Vaginal Yeast NO YEAST SEEN Transvaginal US 06/22/19 15:36 IMPRESSION: Hemorrhagic ovarian cysts. Patient has bilateral hemorrhagic ovarian cysts. She also has 3+ bacteria on her wet mount. She had cervical motion tenderness only exam and has an elevated white blood count. We will treat her for pelvic inflammatory disease/ovarian cyst. ED return precautions were discussed to include observation for appendicitis although I feel this is unlikely. - Vital Signs Vital signs: Temp Pulse Resp BP Pulse Ox 98.5 F 98 18 99 06/22/19 13:53 06/22/19 14:00 06/22/19 14:00 06/22/19 14:00 - Laboratory Result Diagrams: 06/22/19 14:32 06/22/19 14:32 Laboratory results interpreted by me: 06/22/19 06/22/19 06/22/19 14:32 14:32 14:32 WBC 12.9 H Hgb 15.7 H RDW 14.1 H Absolute Neuts (auto) 9.3 H Sodium 136.6 L Total Protein 8.7 H Urine Protein 30 H Urine Blood MODERATE H Discharge - Discharge Clinical Impression: Pelvic inflammatory disease Condition: Stable Disposition: HOME, SELF-CARE Additional Instructions: Ovarian Cyst Your examination shows the presence of an ovarian cyst. This is a ball of fluid attached to the ovary. Ovarian cysts in women of child-bearing age are usually innocent. However, the cyst may cause pain when it grows or bursts. An innocent ovarian cyst will usually go away by itself. When the cyst becomes painful, you should rest. Pain medication may be required. Some women find a hot water bottle soothing. The pain usually resolves within one or two days. After menopause, an ovarian cyst may mean a tumor, and requires more aggressive evaluation -- usually surgery is recommended to remove or biopsy the cyst. A very large cyst requires evaluation at any age. Most cysts (even the innocent ones) require follow-up examination. Call the doctor or return at any time if the pain increases significantly, if you become faint, or if you experience vaginal bleeding. Pelvic Inflammatory Disease You have been diagnosed as having pelvic inflammatory disease (PID). This is an infection of the fallopian tubes and surrounding areas of the pelvis. Symptoms are usually pelvic pain and discharge. The infection can do permanent damage to the tubes and ovaries. It should be taken very seriously. Treatment is antibiotics, which may be given by vein or by injection if the infection seems serious. It's important that you receive all recommended medication. Condoms help prevent spread of this infection to others. Because this infection is spread sexually, it's important that your sexual partner be checked before resuming sexual relations. If a culture shows gonorrhea or chlamydia organisms, the law requires that this be reported to the health department. Call the doctor or return at once if you develop increasing fever, rash, severe pelvic pain, vaginal bleeding (other than your period), or problems with your bladder or bowels. Observation for Appendicitis At this time, the abdominal pain does not seem to be appendicitis. Our next "test" will be passage of time. If you have early appendicitis, signs will appear to help us make the diagnosis. Most of the time, the pain goes away. In these cases, the pain is usually due to a virus in the lymph glands near the appendix, or due to an ovarian cyst or ovulation. Unless the pain is gone, you should come back for a recheck. This is usually done in 8 to 12 hours. Be sure you understand your follow-up instructions. Come back immediately if: (1) the pain becomes much more severe and sharply increases with movement or coughing, (2) vomiting becomes frequent, (3) there is blood in the vomit, urine, or bowel movements, (4) there are shaking chills or fever, or (5) the abdomen becomes more distended or swollen. Prescriptions: Metronidazole [Flagyl 500 mg Tablet] 500 mg PO BID #28 tablet Doxycycline Hyclate [Vibramycin 100 mg Tablet] 100 mg PO BID #28 tablet
[2019-06-22 14:53] LABS: ABSOLUTE BASOPHILS # (AUTO) 0.1 10^3/uL (0.0-0.2); ABSOLUTE EOSINOPHILS # (AUTO) 0.3 10^3/uL (0.0-0.6); ABSOLUTE LYMPHOCYTES (AUTO) 2.4 10^3/uL (0.5-4.7); ABSOLUTE MONOCYTES (AUTO) 0.9 10^3/uL (0.1-1.4); ABSOLUTE NEUT (AUTO) 9.3 10^3/uL (1.7-8.2); EOSINOPHILS % (AUTO) 2.2 % (0-6); HEMATOCRIT 44.7 % (36.0-47.0); HEMOGLOBIN 15.7 g/dL (12.0-15.5); LYMPHOCYTES % (AUTO) 18.2 % (13-45); MEAN CORPUSCULAR HEMOGLOBIN 30.7 pg (27.0-33.4); MEAN CORPUSCULAR HGB CONC 35.2 g/dL (32.0-36.0); MEAN CORPUSCULAR VOLUME 87 fl (80-97); PLATELET COUNT 378 10^3/uL (150-450); RED BLOOD COUNT 5.12 10^6/uL (3.72-5.28); RED CELL DISTRIBUTION WIDTH 14.1 % (11.5-14.0); SEGMENTED NEUTROPHILS % (AUTO) 71.6 % (42-78); TOTAL CELLS COUNTED % (AUTO) 100 %; WHITE BLOOD COUNT 12.9 10^3/uL (4.0-10.5)
[2019-06-22 14:54] LABS: APPEARANCE,URINE SLIGHTLY-CLOUDY; BILIRUBIN,URINE NEGATIVE (NEGATIVE); COLOR,URINE YELLOW; GLUCOSE, URINE NEGATIVE (NEGATIVE); KETONES,URINE NEGATIVE (NEGATIVE); LEUKOCYTE ESTERASE,URINE NEGATIVE (NEGATIVE); NITRITE,URINE NEGATIVE (NEGATIVE); PROTEIN,URINE 30 mg/dL (NEGATIVE); URINE SPECIFIC GRAVITY 1.026; UROBILINOGEN,URINE NEGATIVE mg/dL (<2.0)
[2019-06-22 15:06] LABS: ALBUMIN 4.7 g/dL (3.5-5.0); ALKALINE PHOSPHATASE 87 U/L (38-126); ANION GAP 10 (5-19); ASPARTATE AMINO TRANSFERASE 25 U/L (14-36); BLOOD UREA NITROGEN 13 mg/dL (7-20); CALCIUM 9.9 mg/dL (8.4-10.2); CARBON DIOXIDE 25 mmol/L (22-30); CHLORIDE 102 mmol/L (98-107); GLUCOSE 87 mg/dL (75-110); POTASSIUM 4.8 mmol/L (3.6-5.0); TOTAL PROTEIN 8.7 g/dL (6.3-8.2)
[2019-06-22 15:40] LABS: BACTERIA (WET MOUNT) 3+ BACTERIA SEEN; RBCS (WET MOUNT) 2+ RBCS SEEN; T.VAGINALIS (WET MOUNT) NO TRICHOMONAS SEEN; WBCS (WET MOUNT) 1+ WBCS SEEN; YEAST (WET MOUNT) NO YEAST SEEN
--- NOTE | 2019-06-22 16:16 | RADIOLOGY REPORT (SQ) ---
EXAM DESCRIPTION: U/S NON OB PEL TV W/DOPPLER IMAGES COMPLETED DATE/TIME: 06/22/2019 4:06 pm REASON FOR STUDY: pelvic pain, RLQ pain COMPARISON: None. TECHNIQUE: Dynamic and static grayscale images acquired of the pelvis via transvaginal approach and recorded on PACS. Additional selected color Doppler and spectral images recorded. LIMITATIONS: None. FINDINGS: UTERUS: Contour normal. No mass. ENDOMETRIAL STRIPE: 3 mm. IUD. CERVIX: No nabothian cysts. RIGHT OVARY AND DOPPLER: Normal size. 4.5 cm cyst with internal echoes. Normal arterial vascular fl ow without evidence for torsion. LEFT OVARY AND DOPPLER: Normal size. 5 cm complex cyst with fluid fluid level. . Normal arterial va scular flow without evidence for torsion. FREE FLUID: None noted. OTHER: No other significant finding. IMPRESSION: Hemorrhagic ovarian cysts. TECHNICAL DOCUMENTATION: JOB ID: [id number] [employer]- All Rights Reserved Rev-06/29 Reading location - IP/workstation name: [email or web address]
[2019-06-22] MEDS ORDERED: DOXYCYCLINE HYCLATE 100 MG TABLET PO ONE (16:31)
[2019-06-22] MEDS ORDERED: METRONIDAZOLE 500 MG TABLET PO ONE (16:31)
[2019-06-22] MEDS ORDERED: KETOROLAC TROMETHAMINE 60 MG/2 ML SDV IM ONE (16:40)
[2019-06-22 17:06] LABS: CHLAM PCR DETECTED (NOT DETECT)
[2019-06-22 17:31] VITALS: BP 129/88
== END 2019-06-22 17:05 | disposition home or self-care (01) ==
LOC: ER 13:40
DX: N73.9 Female pelvic inflammatory disease, unspecified (principal); N83.202 Unspecified ovarian cyst, left side; N83.201 Unspecified ovarian cyst, right side; F17.200 Nicotine dependence, unspecified, uncomplicated; Z97.5 Presence of (intrauterine) contraceptive device
CPT/HCPCS: 96372; 99284; 36415; 87210; 84703; 85025; 80053; 81001; 87491; 87591; 76830; 93976; J1885